=== PATIENT | male | born 1950 | race Caucasian/White ===

== ENCOUNTER 2021-01-23 16:10 | Outpatient (REF) | payer MEDICARE, SELFPAY ==
--- NOTE | ~2021-01-23 | XR_ITS ---
EXAMINATION: XR HIP, LEFT CLINICAL INFORMATION: Left hip pain. COMPARISON: None. TECHNIQUE: 2 views of the left hip. FINDINGS: No significant joint space narrowing or marginal osteophytes. No osseous erosion. No fracture or dislocation. No abnormal soft tissue calcification. XR/XR hip LT min 2V IMPRESSION: Unremarkable examination.
== END 2021-01-23 16:11 | disposition home or self-care (01) ==
LOC: HO.XRAY 16:10
PROVIDERS: PCP Internal Medicine; Visit Provider Internal Medicine
DX: M25.552 Pain in left hip (principal)
CPT/HCPCS: 73502

== ENCOUNTER 2021-12-02 08:16 | Outpatient (REF) | payer MEDICARE, SELFPAY ==
[2021-12-02 09:02] LABS: Estimated Average Glucose 131 mg/dL; Hemoglobin A1c % 6.2 %
== END 2021-12-02 08:17 | disposition home or self-care (01) ==
LOC: HO.LAB 08:16
PROVIDERS: PCP Internal Medicine; Visit Provider Internal Medicine
DX: R73.9 Hyperglycemia, unspecified (principal)
CPT/HCPCS: 36415; 83036

== ENCOUNTER 2022-03-17 07:00 | Outpatient (REF) | payer MEDICARE, SELFPAY ==
[2022-03-17 07:19] LABS: MANUAL DIFF FLAG NO
[2022-03-17 08:34] LABS: Basophils Absolute Auto 0.1 X10*3/uL (0.0-0.2); Basophils Percent Auto 0.9 % (0-2); Eosinophils Absolute Auto 0.3 X10*3/uL (0.0-0.4); Eosinophils Percent Auto 4.9 % (0-4); Hematocrit 42.9 % (42.0-52.0); Hemoglobin 14.5 g/dl (14.0-18.0); Imm Gran Abs Auto 0.02 X10*3/uL (0.00-0.03); Imm Gran Pct Auto 0.3 % (0.0-0.4); Lymphocytes Absolute Auto 2.8 X10*3/uL (1.2-4.9); Lymphocytes Percent Auto 40.2 % (20-40); Mean Corpuscular HGB Conc 33.8 g/dl (31.0-36.0); Mean Corpuscular Hemoglobin 28.8 pg (27.0-33.0); Mean Corpuscular Volume 85.3 fL (80.0-98.0); Mean Platelet Volume 10.9 fL (9.4-12.4); Monocytes Absolute Auto 0.6 X10*3/uL (0.1-1.2); Monocytes Percent Auto 8.3 % (2-11); Neutrophils Absolute Auto 3.1 x10*3/uL (2.0-8.3); Neutrophils Percent Auto 45.4 % (45-73); Platelet Count 232 X10*3/uL (160-400); Red Blood Count 5.03 X10*6/uL (4.60-5.80); Red Cell Distribution Width 13.2 % (11.0-16.0); White Blood Count 6.9 X10*3/uL (4.8-10.8)
[2022-03-17 08:47] LABS: Appearance Urine HAZY; Color Urine YELLOW; Glucose Urine UA NEG (NEG); Leukocyte Esterase Urine NEG (NEG); Nitrite Urine NEG (NEG); PH 6.5 (5.0-8.0); UACC Culture Trigger NO; Urine Blood TRACE (NEG); Urine Ketones NEG (NEG); Urine Protein NEG (NEG-TRACE)
[2022-03-17 08:54] LABS: Alanine Aminotransferase 29 U/L (0-40); Albumin Level 4.3 g/dL (3.5-5.0); Alkaline Phosphatase 70 U/L (39-117); Anion Gap 11 (12-20); Aspartate Amino Transferase 25 U/L (5-37); Bilirubin Total 0.6 mg/dL (0.0-1.0); Blood Urea Nitrogen 26 mg/dL (9-16); Calcium 9.1 mg/dL (8.4-10.2); Carbon Dioxide 27 mmol/L (22-29); Chloride 105 mmol/L (96-108); Cholesterol 172 mg/dL; Estimated Glomerular Filt Rate 54; Glucose Fasting 110 mg/dL (60-99); HDL Cholesterol 35 mg/dL; LDL Cholesterol Calculated 106 mg/dl; Potassium 3.9 mmol/L (3.3-5.1); Sodium 139 mmol/L (135-145); Total Protein 7.1 g/dL (6.5-8.0); Triglycerides 156 mg/dL
[2022-03-17 09:11] LABS: RBC Urine 0-2 /HPF (0); Squamous Epithelial Cell Urine 1+ /LPF; WBC Urine 0 /HPF (0-4)
[2022-03-17 09:25] LABS: Prostate Specific Antigen < 0.05 ng/mL (<0.05-4.0); TSH reflex Free T4 1.25 uIU/mL (0.32-4.0)
[2022-03-17 10:02] LABS: Vitamin D 25-OH Total 25.1 ng/mL (>30)
== END 2022-03-17 07:01 | disposition home or self-care (01) ==
LOC: HO.LAB 07:00
PROVIDERS: PCP Internal Medicine; Visit Provider Internal Medicine
DX: Z00.00 Encounter for general adult medical examination without abnormal findings (principal); E55.9 Vitamin D deficiency, unspecified; E78.00 Pure hypercholesterolemia, unspecified; I10 Essential (primary) hypertension; N40.0 Benign prostatic hyperplasia without lower urinary tract symptoms; Z12.5 Encounter for screening for malignant neoplasm of prostate
CPT/HCPCS: 36415; 80053; 80061; 81001; 82306; 84153; 84443; 85025

== ENCOUNTER 2022-07-28 07:06 | Outpatient (REF) | payer MEDICARE, SELFPAY ==
[2022-07-28 07:28] LABS: MANUAL DIFF FLAG NO
[2022-07-28 08:31] LABS: Basophils Absolute Auto 0.1 X10*3/uL (0.0-0.2); Eosinophils Absolute Auto 0.3 X10*3/uL (0.0-0.4); Eosinophils Percent Auto 3.6 % (0-4); Hematocrit 44.9 % (42.0-52.0); Hemoglobin 14.9 g/dl (14.0-18.0); Imm Gran Abs Auto 0.01 X10*3/uL (0.00-0.03); Imm Gran Pct Auto 0.1 % (0.0-0.4); Lymphocytes Absolute Auto 2.5 X10*3/uL (1.2-4.9); Lymphocytes Percent Auto 35.7 % (20-40); Mean Corpuscular HGB Conc 33.2 g/dl (31.0-36.0); Mean Corpuscular Hemoglobin 28.2 pg (27.0-33.0); Mean Platelet Volume 10.9 fL (9.4-12.4); Monocytes Absolute Auto 0.5 X10*3/uL (0.1-1.2); Monocytes Percent Auto 7.6 % (2-11); Neutrophils Absolute Auto 3.6 x10*3/uL (2.0-8.3); Platelet Count 245 X10*3/uL (160-400); Red Blood Count 5.28 X10*6/uL (4.60-5.80); Red Cell Distribution Width 13.2 % (11.0-16.0)
[2022-07-28 08:40] LABS: Estimated Average Glucose 123 mg/dL; Hemoglobin A1c % 5.9 %
[2022-07-28 09:18] LABS: Alanine Aminotransferase 29 U/L (0-40); Albumin Level 4.5 g/dL (3.5-5.0); Alkaline Phosphatase 71 U/L (39-117); Anion Gap 16 (12-20); Aspartate Amino Transferase 27 U/L (5-37); Bilirubin Total 0.6 mg/dL (0.0-1.0); Blood Urea Nitrogen 21 mg/dL (9-16); Calcium 9.6 mg/dL (8.4-10.2); Carbon Dioxide 26 mmol/L (22-29); Chloride 103 mmol/L (96-108); Cholesterol 167 mg/dL; Estimated Glomerular Filt Rate 52; Glucose Fasting 114 mg/dL (60-99); HDL Cholesterol 41 mg/dL; LDL Cholesterol Calculated 109 mg/dl; Sodium 141 mmol/L (135-145); Total Protein 7.5 g/dL (6.5-8.0); Triglycerides 89 mg/dL
[2022-07-28 09:37] LABS: Prostate Specific Antigen < 0.05 ng/mL (<0.05-4.0); TSH reflex Free T4 1.12 uIU/mL (0.32-4.0); Vitamin D 25-OH Total 46.9 ng/mL (>30)
[2022-07-28 11:03] LABS: Appearance Urine Cloudy; Color Urine Yellow; Glucose Urine UA Negative (Negative); Leukocyte Esterase Urine Negative (Negative); Nitrite Urine Negative (Negative); Specific Gravity - Urine 1.025 (1.005-1.025); Urine Blood Negative (Negative); Urine Ketones Trace mg/dL (Negative); Urine Protein Negative (Neg-Trace)
== END 2022-07-28 07:07 | disposition home or self-care (01) ==
LOC: HO.LAB 07:06
PROVIDERS: PCP Internal Medicine; Visit Provider Internal Medicine
DX: I10 Essential (primary) hypertension (principal); R73.01 Impaired fasting glucose; N40.0 Benign prostatic hyperplasia without lower urinary tract symptoms; E78.00 Pure hypercholesterolemia, unspecified; E55.9 Vitamin D deficiency, unspecified; Z12.5 Encounter for screening for malignant neoplasm of prostate
CPT/HCPCS: 36415; 80053; 80061; 81003; 82306; 83036; 84153; 84443; 85025

== ENCOUNTER → 2022-12-17 12:38 | Outpatient (BNVA) | payer MEDICARE, SELFPAY | PROVIDERS: PCP Internal Medicine; Referring Provider Internal Medicine; Visit Provider Surgery | DX: D17.0 Benign lipomatous neoplasm of skin and subcutaneous tissue of head, face and neck (principal) | CPT/HCPCS: 99202 ==

== ENCOUNTER 2023-01-02 10:37 | Outpatient (REF) | payer MEDICARE, SELFPAY | END 2023-01-02 10:38 | disposition home or self-care (01) | LOC: HO.LNP 10:37 | PROVIDERS: PCP Internal Medicine; Visit Provider Surgery | DX: D17.0 Benign lipomatous neoplasm of skin and subcutaneous tissue of head, face and neck (principal) | CPT/HCPCS: 11422; 88304 ==

== ENCOUNTER → 2023-01-09 14:46 | Outpatient (BNVA) | payer MEDICARE, SELFPAY | PROVIDERS: PCP Internal Medicine; Referring Provider Internal Medicine; Visit Provider Surgery ==

== ENCOUNTER 2023-04-20 07:41 | Outpatient (REF) | payer MEDICARE, SELFPAY ==
--- NOTE | ~2023-04-20 | XR_ITS ---
EXAMINATION: XR LUMBOSACRAL SPINE CLINICAL INFORMATION: Low back pain, unspecified COMPARISON: 04/27/2020 TECHNIQUE: Three views of the lumbosacral spine. FINDINGS: 5 lumbar type vertebral bodies. Vertebral body heights are preserved. Mild degenerative disc disease in the lumbar spine greatest at L4-L5 and L5-S1. Small marginal osteophyte formation. Mild facet arthropathy at L4-L5 and L5-S1. Sacroiliac joints are intact. XR/XR lumbar spine 2-3V IMPRESSION: Mild degenerative disc disease and facet arthropathy in the lower lumbar spine.
[2023-04-20 07:54] LABS: MANUAL DIFF FLAG NO
[2023-04-20 08:13] LABS: Basophils Absolute Auto 0.1 X10*3/uL (0.0-0.2); Eosinophils Absolute Auto 0.3 X10*3/uL (0.0-0.4); Eosinophils Percent Auto 4.4 % (0-4); Hematocrit 45.7 % (42.0-52.0); Hemoglobin 15.1 g/dl (14.0-18.0); Imm Gran Abs Auto 0.02 X10*3/uL (0.00-0.03); Imm Gran Pct Auto 0.3 % (0.0-0.4); Lymphocytes Absolute Auto 2.5 X10*3/uL (1.2-4.9); Lymphocytes Percent Auto 36.1 % (20-40); Mean Corpuscular Hemoglobin 28.4 pg (27.0-33.0); Mean Corpuscular Volume 86.1 fL (80.0-98.0); Mean Platelet Volume 10.6 fL (9.4-12.4); Monocytes Absolute Auto 0.5 X10*3/uL (0.1-1.2); Monocytes Percent Auto 7.7 % (2-11); Neutrophils Absolute Auto 3.5 x10*3/uL (2.0-8.3); Neutrophils Percent Auto 50.5 % (45-73); Platelet Count 242 X10*3/uL (160-400); Red Blood Count 5.31 X10*6/uL (4.60-5.80); Red Cell Distribution Width 13.2 % (11.0-16.0)
[2023-04-20 08:27] LABS: Estimated Average Glucose 117 mg/dL; Hemoglobin A1C 148.6556 umol/L; Hemoglobin A1c % 5.7 %
[2023-04-20 08:54] LABS: Alanine Aminotransferase 39 U/L (0-40); Albumin Level 4.5 g/dL (3.5-5.0); Alkaline Phosphatase 77 U/L (39-117); Anion Gap 14 (12-20); Aspartate Amino Transferase 28 U/L (5-37); Bilirubin Total 0.7 mg/dL (0.0-1.0); Blood Urea Nitrogen 24 mg/dL (9-16); Calcium 9.7 mg/dL (8.4-10.2); Carbon Dioxide 26 mmol/L (22-29); Chloride 106 mmol/L (96-108); Cholesterol 167 mg/dL; Estimated Glomerular Filt Rate 50; Glucose Fasting 111 mg/dL (60-99); HDL Cholesterol 42 mg/dL; LDL Cholesterol Calculated 106 mg/dl; Potassium 3.8 mmol/L (3.3-5.1); Sodium 142 mmol/L (135-145); Total Protein 7.6 g/dL (6.5-8.0); Triglycerides 96 mg/dL
[2023-04-20 08:54] LABS: Appearance Urine Clear; Color Urine Yellow; Glucose Urine UA Negative (Negative); Leukocyte Esterase Urine Negative (Negative); Nitrite Urine Negative (Negative); Specific Gravity - Urine 1.025 (1.005-1.025); Urine Blood Negative (Negative); Urine Ketones Negative (Negative); Urine Protein Negative (Neg-Trace)
[2023-04-20 09:10] LABS: TSH reflex Free T4 0.95 uIU/mL (0.32-4.0); Vitamin D 25-OH Total 38.3 ng/mL (>30)
== END 2023-04-20 07:42 | disposition home or self-care (01) ==
LOC: HO.XRAY 07:41
PROVIDERS: PCP Internal Medicine; Visit Provider Internal Medicine
DX: M54.50 Low back pain, unspecified (principal); R30.0 Dysuria; E55.9 Vitamin D deficiency, unspecified; I10 Essential (primary) hypertension; R73.01 Impaired fasting glucose; E78.00 Pure hypercholesterolemia, unspecified
CPT/HCPCS: 36415; 72100; 80053; 80061; 81003; 82306; 83036; 84443; 85025

== ENCOUNTER 2023-07-03 15:26 | Emergency (ER) | payer MEDICARE, SELFPAY ==
--- NOTE | ~2023-07-03 | XR_ITS ---
EXAMINATION: XR CHEST CLINICAL INFORMATION: Chest COMPARISON: 07/14/2014. TECHNIQUE: Frontal view of the chest was obtained. FINDINGS: No significant abnormality is noted involving the heart, lungs, mediastinum, bony thorax or soft tissues. There is linear atelectasis in lingula XR/XR chest 1V IMPRESSION: No active cardiopulmonary disease
--- NOTE | ~2023-07-03 | XR_ITS ---
EXAMINATION: XR SHOULDER, LEFT CLINICAL INFORMATION: Rotator cuff tendinitis. COMPARISON: None available. TECHNIQUE: Four views of the left shoulder. FINDINGS: No acute fractures or malalignment. No abnormal soft tissue calcifications. The acromioclavicular joint and coracoid process are within normal limits. The visualized left-sided ribs and lung are unremarkable. No unexpected radiopaque foreign bodies. XR/XR shoulder LT min 2V IMPRESSION: 1. No acute fractures or malalignment. 2. No abnormal soft tissue calcifications.
--- NOTE | 2023-07-03 15:28 | ECG_ITS ---
Test Reason : CHEST PAIN Blood Pressure : / mmHG Vent. 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
--- NOTE | 2023-07-03 15:48 | ED_ITS ---
HPI - General Adult General Chief complaint: Chest Pain Stated complaint: L arm pain to back , severe. Time Seen by Provider: 07/03/23 18:48 Source: patient Mode of arrival: ambulatory Limitations: no limitations History of Present Illness HPI narrative: Patient with history of hypertension, prostate cancer chronic arthritis left shoulder pain for more than 1 year comes here for increased pain in the left shoulder for last 3 days apparently patient gets up by pushing his elbow to the bed 3 days ago noticed more pain in the left shoulder which increases on abductor no chest pain or shortness of breath no injury patient tender to touch to the left shoulder and increases on moving his left arm Related Data Previous Rx's Medication Instructions Recorded lidocaine 5 % topical patch 1 patch topical DAILY #30 ea 02/09/21 mometasone 0.1 % topical cream 1 appl topical DAILY rash 10 days 05/23/21 #45 grams sildenafil 100 mg tablet 100 mg PO ONCE PRN sexual activity 09/25/21 30 days #6 tabs cholecalciferol (vitamin D3) 50 50 mcg PO DAILY 90 days #90 caps 04/05/23 mcg (2,000 unit) capsule hydrochlorothiazide 25 mg tablet 25 mg PO QAM 90 days #90 tabs 04/05/23 tramadol 50 mg tablet 50 mg PO Q6H PRN pain #20 tabs 07/03/23 Allergies Allergy/AdvReac Type Severity Reaction Status Date / Time No Known Allergies Allergy Verified 07/03/23 15:48 Review of Systems 2 Review of Systems: Yes all other systems are reviewed and are negative PMFSH Past Medical History Medical History Lipoma of neck Vitamin D deficiency Erectile dysfunction Hearing impairment Left hip pain Obesity (BMI 30-39.9) Prostate cancer Benign essential hypertension Surgical History History of excision of mass (01/02/23) History of partial colectomy Status post excision of lipoma History of laparoscopic cholecystectomy History of prostatectomy (~11/15/20) Family History Family History Other Family history non-contributory Social History Social History Housing: House Alcohol intake: never Patient Tobacco Use Status: Never used Tobacco Smoked in Last 30 Days: No e-Cigarette/Vaping Use: Never Used Second Hand Smoke Exposure: No Use of substances other than those prescribed or required for medical reasons: No Advance Directives: No Advance Directives Information Provided: No service: No Current occupational status: employed Cognitive needs: No Hearing needs: No Vision needs: Yes Physical Exam ED Vital Signs: Vital Signs - 24 hr 07/03/23 15:49 07/03/23 18:51 07/03/23 19:25 Temperature 98.2 F 98.0 F Pulse Rate 91 84 85 Respiratory Rate 16 14 16 Blood Pressure 171/90 H 166/95 H 158/84 H Pulse Oximetry 94 94 97 Oxygen Delivery Method Room Air Room Air Room Air BMI result Body Mass Index 33.9 Appearance: Alert. Oriented X3. No acute distress. ENT: Pharynx normal. Oral Mucosa moist Neck: Normal inspection. Neck supple. CVS: Normal heart rate and rhythm. Pulses normal. Respiratory: No respiratory distress. Equal air entry bilateral, Abdomen: Soft and nontender. Bowel sounds are present, Skin: Skin warm and dry. Normal skin color. Normal skin turgor. Extremities: No lower extremity edema. No calf tenderness left shoulder diffuse rotator cuff tenderness increase pain on abduction and external rotation neurovascular intact Neuro: Oriented X 3. No motor deficit. No sensory deficit.No cerebellar signs , cranial nerves II-XII intact Course Course Course Narrative: RME: 72-year-old male with past medical history of hypertension, prostate CA, presenting to the ED complaining of left-sided arm pain radiating to chest, head, neck x yesterday. Pain is constant. Denies injury Lungs CTA, peripheral pulses intact EKG, labs, CXR ordered Full HPI, ROS and PE to be performed by primary ED provider. Medications Administered Discontinued Medications Generic Name Dose Route Start Last Admin Trade Name Freq PRN Reason Stop Dose Admin Morphine Sulfate 15 mg 07/03/23 19:02 07/03/23 19:24 Morphine Sulfate Immed Release 15 Mg Tablet PO 07/03/23 19:03 15 mg ONCE ONE Administration Medical Decision Making Medical Decision Making [facility] Narrative: Patient clinically with left rotator cuff tendinitis labs negative for ACS will apply sling discharge patient home advised to follow with Ortho Differential Diagnosis Differential Diagnoses: The differential diagnosis associated with the presentation includes ACS/tendinitis/rotator cuff tendinitis/impingement syndrome Lab Data MDM Lab Attestation statement: I reviewed the patient's lab results. 07/03/23 17:25 07/03/23 17:25 Labs: Lab Results 07/03/23 Range/Units 17:25 WBC 10.0 (4.8-10.8) X10*3/uL RBC 5.30 (4.60-5.80) X10*6/uL Hgb 15.4 (14.0-18.0) g/dl Hct 44.6 (42.0-52.0) % MCV 84.2 (80.0-98.0) fL MCH 29.1 (27.0-33.0) pg MCHC 34.5 (31.0-36.0) g/dl RDW 13.0 (11.0-16.0) % Plt Count 213 (160-400) X10*3/uL MPV 10.4 (9.4-12.4) fL Immature Gran % (Auto) 0.3 (0.0-0.4) % Neut % (Auto) 69.0 (45-73) % Lymph % (Auto) 20.5 (20-40) % Clayton % (Auto) 8.1 (2-11) % Eos % (Auto) 1.5 (0-4) % Baso % (Auto) 0.6 (0-2) % Lymph # (Auto) 2.1 (1.2-4.9) X10*3/uL Clayton # (Auto) 0.8 (0.1-1.2) X10*3/uL Eos # (Auto) 0.2 (0.0-0.4) X10*3/uL Baso # (Auto) 0.1 (0.0-0.2) X10*3/uL Abs Immat Gran (auto) 0.03 (0.00-0.03) X10*3/uL Absolute Neuts (auto) 6.9 (2.0-8.3) x10*3/uL Absolute Nucleated RBC 0.000 (0.0-0.012) X10*3/uL Nucleated RBC % (auto) 0.0 (0.0-0.2) /100WBC PT 11.5 (11.1-13.3) SEC INR 0.9 (0.9-1.1) Sodium 141 (135-145) mmol/L Potassium 4.3 (3.3-5.1) mmol/L Chloride 108 (96-108) mmol/L Carbon Dioxide 26 (22-29) mmol/L Anion Gap 11 L (12-20) BUN 15 (9-16) mg/dL Creatinine 1.15 (0.5-1.4) mg/dL Estim Creat Clear Calc 64.5 Estimated GFR > 60 Random Glucose 102 (60-115) mg/dL Calcium 9.6 (8.4-10.2) mg/dL Magnesium 2.3 (1.6-2.6) mg/dL Total Bilirubin 0.4 (0.0-1.0) mg/dL Direct Bilirubin 0.1 (0.0-0.5) mg/dL AST 19 (5-37) U/L ALT 23 (0-40) U/L Alkaline Phosphatase 77 (39-117) U/L Troponin I High Sens < 2.7 (<3.5-35.0) ng/L Total Protein 7.6 (6.5-8.0) g/dL Albumin 4.4 (3.5-5.0) g/dL Independent Interpretation I performed an independent interpretation of an: EKG Interpretation: Normal sinus rhythm left axis deviation heart rate 78 beats per minute normal interval normal axis no acute ischemic changes Discharge Plan Discharge Clinical Impression: Tendinitis of left rotator cuff Patient Disposition: Home, Self-Care Instructions: Rotator Cuff Tendinitis (ED) Additional Instructions: Wear the sling for support Avoid lifting your left arm above your head Follow-up with orthopedics Pain medication as prescribed Prescriptions: New tramadol 50 mg tablet 50 mg PO Q6H PRN (Reason: pain) Qty: 20 0RF No Action lidocaine 5 % adhesive patch,medicated 1 patch topical DAILY Qty: 30 0RF Rx Instructions: leave on most painful area for up to 12 hrs sildenafil 100 mg tablet 100 mg PO ONCE PRN (Reason: sexual activity) 30 Days Qty: 6 0RF mometasone 0.1 % cream 1 appl topical DAILY 10 Days Qty: 45 0RF Rx Instructions: Apply to rash on chin once a day for 10 days OR until rash clears up hydrochlorothiazide 25 mg tablet 25 mg PO QAM 90 Days Qty: 90 1RF cholecalciferol (vitamin D3) 50 mcg (2,000 unit) capsule 50 mcg PO DAILY 90 Days Qty: 90 3RF Referrals: Rayo Bonilla MD [Physician] - 2 weeks Stand Alone Forms: Work/School Release Interventions: ED Discharge Assessment Last Done: 07/03/23 19:48 Discharge Date/Time: 07/03/23 19:49
[2023-07-03 15:49] VITALS: BP 171/90; PULSE 91; RESP 16; TEMP 36.8; O2SAT 94; BMI 33.9
[2023-07-03 17:30] LABS: MANUAL DIFF FLAG NO
[2023-07-03 17:34] LABS: Basophils Absolute Auto 0.1 X10*3/uL (0.0-0.2); Basophils Percent Auto 0.6 % (0-2); Eosinophils Absolute Auto 0.2 X10*3/uL (0.0-0.4); Eosinophils Percent Auto 1.5 % (0-4); Hematocrit 44.6 % (42.0-52.0); Hemoglobin 15.4 g/dl (14.0-18.0); Imm Gran Abs Auto 0.03 X10*3/uL (0.00-0.03); Imm Gran Pct Auto 0.3 % (0.0-0.4); Lymphocytes Absolute Auto 2.1 X10*3/uL (1.2-4.9); Lymphocytes Percent Auto 20.5 % (20-40); Mean Corpuscular HGB Conc 34.5 g/dl (31.0-36.0); Mean Corpuscular Hemoglobin 29.1 pg (27.0-33.0); Mean Corpuscular Volume 84.2 fL (80.0-98.0); Mean Platelet Volume 10.4 fL (9.4-12.4); Monocytes Absolute Auto 0.8 X10*3/uL (0.1-1.2); Monocytes Percent Auto 8.1 % (2-11); Neutrophils Absolute Auto 6.9 x10*3/uL (2.0-8.3); Platelet Count 213 X10*3/uL (160-400)
[2023-07-03 17:39] LABS: INTERNATIONAL NORM RATIO 0.9 (0.9-1.1); Prothrombin Time 11.5 SEC (11.1-13.3)
[2023-07-03 17:46] LABS: Alanine Aminotransferase 23 U/L (0-40); Albumin Level 4.4 g/dL (3.5-5.0); Alkaline Phosphatase 77 U/L (39-117); Anion Gap 11 (12-20); Aspartate Amino Transferase 19 U/L (5-37); Bilirubin Direct 0.1 mg/dL (0.0-0.5); Bilirubin Total 0.4 mg/dL (0.0-1.0); Blood Urea Nitrogen 15 mg/dL (9-16); Calcium 9.6 mg/dL (8.4-10.2); Carbon Dioxide 26 mmol/L (22-29); Chloride 108 mmol/L (96-108); Creatinine Clr Calc Pharmacy 64.5; Estimated Glomerular Filt Rate > 60; Glucose Random 102 mg/dL (60-115); Magnesium 2.3 mg/dL (1.6-2.6); Potassium 4.3 mmol/L (3.3-5.1); Sodium 141 mmol/L (135-145); Total Protein 7.6 g/dL (6.5-8.0)
[2023-07-03 17:55] LABS: Troponin-I High Sensitivity < 2.7 ng/L (<3.5-35.0)
[2023-07-03 18:51] VITALS: BP 166/95; PULSE 84; RESP 14; TEMP 36.7; O2SAT 94
--- NOTE | 2023-07-03 19:11 | PC.NURSE ---
pt at xray at this time.
[2023-07-03] MEDS: Morphine Sulfate Immed Release 15 MG TABLET PO (19:24)
[2023-07-03 19:25] VITALS: BP 158/84; PULSE 85; RESP 16; O2SAT 97
== END 2023-07-03 19:49 | disposition home or self-care (01) ==
PROVIDERS: Physician Assistant; Emergency Provider Internal Medicine; PCP Internal Medicine
DX: M75.102 Unspecified rotator cuff tear or rupture of left shoulder, not specified as traumatic (principal); M25.512 Pain in left shoulder; R07.89 Other chest pain; I10 Essential (primary) hypertension; C61 Malignant neoplasm of prostate; E55.9 Vitamin D deficiency, unspecified; Z79.899 Other long term (current) drug therapy
CPT/HCPCS: 36415; 71045; 73030; 80048; 80076; 83735; 84484; 85025; 85610; 93005; 99283; 99285

== ENCOUNTER 2023-07-29 14:15 | Outpatient (AMB) | payer MEDICARE, SELFPAY ==
[2023-07-29 14:23] VITALS: BP 128/74; PULSE 82; O2SAT 96; BMI 33.1
--- NOTE | 2023-07-29 14:23 | A.OFFPC_ITS ---
Vital Signs 07/29/23 14:23 Height 5 ft 6 in Weight 205 lb 4 oz BMI 33.1 BP 128/74 Blood Pressure Location Lt brachial Position Sitting Pulse 82 Pulse Source Pulse Oximeter Pulse Oximetry (%) 96 Oxygen Delivery Method Room Air Intake Visit Reasons: 4 month f/u - see bulletin board Field Administrator Required: No Accompanied by: Self / Same As Patient Allergies No Known Allergies Allergy (Verified 07/29/23 15:37) Medication List - Last Reconciled 07/29/23 by Neto Lockwood MD cholecalciferol (vitamin D3) 50 mcg PO DAILY 90 days hydrochlorothiazide 25 mg PO QAM 90 days lidocaine 5% 1 patch topical DAILY mometasone 0.1% 1 appl topical DAILY 10 days sildenafil 100 mg PO ONCE PRN 30 days tramadol 50 mg PO Q6H PRN Tobacco use date assessed: 07/29/23 Fall risk assessment: No Falls in past year Last assessed Fall Risk: 07/29/23 Dental Screening Dental Screen Date: 07/29/23 Did you have a dental visit in the last 12 months?: Yes Did you have a dental problem in the last 6 months where you did not have access to dental care?: No Was dental information given to patient?: Patient has dentist HPI 4 month f/u - see bulletin board HPI Details Patient comes in today for his follow up visit States that he currently feels okay He denies any headaches or dizziness Denies any chest pains, no SOB No nausea/vomiting, no abdominal pain No change in bowel habits noted Needs his HCTX Rx refilled Had his follow up labs done last month although these appear to be non-fasting - to discuss his results [facility] Medical History Lipoma of neck Vitamin D deficiency Erectile dysfunction Hearing impairment Left hip pain Obesity (BMI 30-39.9) Prostate cancer Benign essential hypertension Surgical History History of excision of mass (01/02/23) History of partial colectomy Status post excision of lipoma History of laparoscopic cholecystectomy History of prostatectomy (~11/15/20) Family History Other Family history non-contributory Social History Housing: House Alcohol intake: never Patient Tobacco Use Status: Never used Tobacco e-Cigarette/Vaping Use: Never Used Second Hand Smoke Exposure: No service: No Current occupational status: employed Cognitive needs: No Hearing needs: No Vision needs: Yes Questionnaire PHQ-9 Over the last 2 weeks, how often have you been bothered by any of the following problems? 1. Little interest or pleasure in doing things: not at all 2. Feeling down, depressed, or hopeless: not at all 3. Trouble falling or staying asleep, or sleeping too much: several days 4. Feeling tired or having little energy: not at all 5. Poor appetite or overeating: not at all 6. Feeling bad about yourself - or that you are a failure or have let yourself or your family down: not at all 7. Trouble concentrating on things, such as reading the newspaper or watching te levision: not at all 8. Moving or speaking so slowly that other people could have noticed. Or the opposite - being so fidgety or restless that you have been moving around a lot more than usual: not at all 9. Thoughts that you would be better off or of hurting yourself in some way: not at all Total score: 1 Depression Screening Interpretation: Negative Depression Screening Done: Yes 76240 - PHQ-9 Billing: Yes Source: Developed by Drs. Dinesh Christianson, Aida Chatterjee, Kem Pineda and colleagues, with an educational grisel from [employer]. Thrive Questionnaire Date Thrive assessed: 07/29/23 I am a: Patient What is your living situation today?: I have a steady place to live Within the past 12 months, did the food you bought not last and you didn't have the money to get more?: Never true Within the past 12 months, did you worry whether your food would run out before you got money to buy more?: Never true Do you have trouble paying for medicines?: No Do you have trouble getting transportation to medical appointments?: No Do you have trouble paying your heating and electricity bill?: No Do you have trouble taking care of your child, family member or friend?: No Do you have trouble with day-to-day activities such as bathing, preparing meals, shopping, managing finances, etc.?: No Are you currently unemployed and looking for a job?: No Are you interested in more education?: No Please select the resources that you would like help with: None Currently or been in a relationship where the following occur: no concerns reported AUDIT C Alcohol Use Questionnaire (AUDIT-C) 1. How often do you have a drink containing alcohol?: Never 3. How often do you have six or more drinks on one occasion?: Never Total Score: 0 Score Reviewed/Action Taken: Yes COTY-7 AMB Questionnaire COTY-7 Date COTY - 7 assessed: 07/29/23 Feeling nervous, anxious, or on edge: 1 = Several days Not being able to stop or control worryin = Not at all Worrying too much about different things: 0 = Not at all Trouble relaxin = Not at all Being so restless that it is hard to sit still: 0 = Not at all Becoming easily annoyed or irritable: 0 = Not at all Feeling afraid as if something awful might happen: 0 = Not at all Total COTY-7 score (0-4 normal; 5-9 mild; 10-14 moderate; 15-21 severe): 1 Source: Developed by Drs. Dinesh Christianson, Aida Chatterjee, Kem Pineda and colleagues, with an educational grisel from [employer]. Review of Systems Const Denies chills, Denies fatigue, Denies fever(s) and Denies headache(s) ENT Denies dysphagia, Denies dizziness, Denies otalgia, Denies headache(s), Denies odynophagia and Denies sore throat Card Denies chest pain, Denies palpitations and Denies dyspnea Resp Denies cough and Denies dyspnea GI Denies abdominal pain, Denies constipation, Denies dysphagia, Denies heartburn, Denies diarrhea, Denies nausea, Denies odynophagia and Denies vomiting Denies dysuria, Denies nocturia and Denies urinary frequency Musc Reports back pain (over the lower back - on and off) and Denies arthralgias Skin/Breast Denies rash Neuro Denies dizziness and Denies headache(s) Endo Denies fatigue and Denies palpitations Physical exam (Primary Care) Vital Signs: Last Vital Signs Pulse 82 07/29/23 14:23 BP 128/74 07/29/23 14:23 Pulse Ox 96 07/29/23 14:23 Oxygen Delivery Method Room Air 07/29/23 14:23 BMI result Body Mass Index 33.1 Tobacco/Smoking Status: Tobacco use Status Tobacco use date assessed 07/29/23 07/29/23 14:25 Patient Tobacco Use Status Never used Tobacco 07/29/23 14:25 e-Cigarette/Vaping Use Never Used 07/29/23 14:25 PHQ-9: PHQ-9 Score PHQ-9: Total score 1 07/29/23 15:38 Depression Screening Interpretation: Negative Thrive Assessment: Date of Thrive Assessment Date Thrive assessed 07/29/23 07/29/23 14:25 Currently or been in a relationship where the following occur: no concerns reported Const General: no acute distress and alert HENMT Ears: TM's normal bilaterally and EAC's normal Throat: Yes posterior oropharynx normal and Yes tonsils normal (no TP congestion) Neck Neck: Yes no lymphadenopathy and Yes supple Resp Auscultation: clear to auscultation bilaterally, no rales and no wheezes Cardio Rate: regular rate Rhythm: regular rhythm Heart sounds: no murmurs GI Palpation (GI): Soft to palpation and nontender Auscultation: normal bowel sounds Back/Spine/Pelvis Thoracic/Lumbar Spine: lumbar spinal tenderness Skin Rashes: no rashes Extrem General: Yes no clubbing, cyanosis or edema Results Reviewed Results Reviewed: Laboratory Tests 04/20/23 07/03/23 07:51 17:25 WBC 10.0 Hgb 15.4 Hct 44.6 Plt Count 213 Sodium 141 Potassium 4.3 Creatinine 1.15 Estimated GFR > 60 Random Glucose 102 Calcium 9.6 Magnesium 2.3 AST 19 ALT 23 Triglycerides 96 Cholesterol 167 LDL Cholesterol, Calc 106 HDL Cholesterol 42 25-OH Vitamin D Total 38.3 TSH 0.95 Assessment and Plan Assessment & Plan (1) Benign essential hypertension: Code(s): I10 - Essential (primary) hypertension Plan: Reinforced low-sodium diet -? goal is systolic BP of at least 120 to 130 mm or less Continue Hydrochlorothiazide 25 mg QD (2) Impaired fasting glucose: Code(s): R73.01 - Impaired fasting glucose Plan: His RBS was okay at 102 mg/dl on his labs done last month HgbA1c was at 5.9% on his labs done a few months ago; in-office HgbA1c was also at 5.9% previously Reinforced low calorie and low carb diet/exercise as tolerated Will recheck his labs and a repeat HgbA1c in 4 months for follow up (3) Vitamin D deficiency: Code(s): E55.9 - Vitamin D deficiency, unspecified Plan: Continue Vitamin D3 2000 units QD (4) Low back pain: Code(s): M54.50 - Low back pain, unspecified Qualifiers: Back pain laterality: midline Chronicity: unspecified Sciatica presence: without sciatica Qualified Code(s): M54.50 - Low back pain, unspecified Plan: Reinforced activity and weight lifting restrictions Lumbar spine x-rays done back in April 2023 revealed (+) mild degenerative disc disease and facet arthropathy in the lower lumbar spine Will consider referring to physical therapy and / or pain management if his low er back continues to bother him significantly (5) Prostate cancer: Code(s): C61 - Malignant neoplasm of prostate Plan: S/P robotic-assisted prostatectomy by Dr. Degroot a couple of years ago on 11/15/2020 Pathology showed Han 3+4, pT2c Repeat PSA a few months ago came out normal/low Follow up with urology as scheduled for continuing management and surveillance (6) Erectile dysfunction: Code(s): N52.9 - Male erectile dysfunction, unspecified Qualifiers: Erectile dysfunction type: unspecified Qualified Code(s): N52.9 - Male erectile dysfunction, unspecified Plan: Continue Sildenafil 50 mg QD PRN (7) Obesity (BMI 30-39.9): Code(s): E66.9 - Obesity, unspecified Plan: Reinforced diet/exercise as tolerated/lose weight Plan To return in 4 months for his annual physicla examination Orders: Orders Complete Blood Count Auto Diff 4 Months I10 - Essential (primary) hypertension Comprehensive Dawson. Panel Fast 4 Months E78.00 - Pure hypercholesterolemia, unspecified Vitamin D 25-OH Total 4 Months E55.9 - Vitamin D deficiency, unspecified Lipid Panel 4 Months E78.00 - Pure hypercholesterolemia, unspecified TSH reflex Free T4 4 Months E78.00 - Pure hypercholesterolemia, unspecified UA CC w/rflx Micro + Cult 4 Months R30.0 - Dysuria Medications: Refilled hydrochlorothiazide 25 mg PO QAM 90 days 90 tabs 1RF I10 - Essential (primary) hypertension Coding Level of Care Code Est Pt Level 4 (17060) Diagnoses Benign essential hypertension I10 Impaired fasting glucose R73.01 Vitamin D deficiency E55.9 Midline low back pain without sciatica, unspecified chronicity M54.50 Back pain laterality: midline Chronicity: unspecified Sciatica presence: without sciatica Prostate cancer C61 Erectile dysfunction, unspecified erectile dysfunction type N52.9 Erectile dysfunction type: unspecified Obesity (BMI 30-39.9) E66.9
== END 2023-07-29 15:44 | disposition home or self-care (01) ==
PROVIDERS: PCP Internal Medicine; Visit Provider Internal Medicine
DX: I10 Essential (primary) hypertension (principal); R73.01 Impaired fasting glucose; E55.9 Vitamin D deficiency, unspecified; C61 Malignant neoplasm of prostate; M54.50 Low back pain, unspecified; N52.9 Male erectile dysfunction, unspecified; E66.9 Obesity, unspecified
CPT/HCPCS: 99214

== ENCOUNTER 2023-11-26 14:41 | Outpatient (AMB) | payer MEDICARE, SELFPAY ==
[2023-11-26 14:44] VITALS: BP 122/80; PULSE 75; O2SAT 93; BMI 33.5
--- NOTE | 2023-11-26 14:44 | A.OFFPC_ITS ---
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 Required: No Accompanied by: Self / Same As Patient Allergies No Known Allergies Allergy (Verified 11/26/23 15:49) Medication List - Last Reconciled 11/26/23 by Neto Lockwood MD cholecalciferol (vitamin D3) 50 mcg PO DAILY 90 days hydrochlorothiazide 25 mg PO QAM 90 days lidocaine 5% 1 patch topical DAILY mometasone 0.1% 1 appl topical DAILY 10 days sildenafil 100 mg PO ONCE PRN 30 days tramadol 50 mg PO Q6H PRN Tobacco use date assessed: 11/26/23 Last assessed Fall Risk: 11/26/23 Dental Screening Dental Screen Date: 11/26/23 Did you have a dental visit in the last 12 months?: Yes Did you have a dental problem in the last 6 months where you did not have access to dental care?: No Was dental information given to patient?: Patient has dentist HPI Annual Physical HPI Details Patient comes in today for his annual physical examination States that he feels okay Still has on and off low back pain but states that they are mostly manageable as long as he avoids any heavy lifting He denies any headaches or dizziness Denies any chest pains, no SOB No nausea/vomiting, no abdominal pain No change in bowel habits noted He denies any acute urinary symptoms although he does get up about 2 to 3 times a night regularly to go to the bathroom States that he has no problem going back to sleep immediately following his bathroom trips He was not able to get his follow up labs done prior to his appointment today - states that he was not aware that he had labs ordered Recalls that he had a screening colonoscopy done at [facility] about 8 to 9 years ago - does not remember how his results were but thinks that they were normal [facility] Medical History Lipoma of neck Vitamin D deficiency Erectile dysfunction Hearing impairment Left hip pain Obesity (BMI 30-39.9) Prostate cancer Benign essential hypertension Surgical History History of excision of mass (01/02/23) History of partial colectomy Status post excision of lipoma History of laparoscopic cholecystectomy History of prostatectomy (~11/15/20) Family History Other Family history non-contributory Social History Housing: House Alcohol intake: never Patient Tobacco Use Status: Never used Tobacco e-Cigarette/Vaping Use: Never Used Second Hand Smoke Exposure: No service: No Current occupational status: employed Cognitive needs: No Hearing needs: No Vision needs: Yes Questionnaire PHQ-9 Over the last 2 weeks, how often have you been bothered by any of the following problems? 1. Little interest or pleasure in doing things: not at all 2. Feeling down, depressed, or hopeless: not at all 3. Trouble falling or staying asleep, or sleeping too much: several days 4. Feeling tired or having little energy: not at all 5. Poor appetite or overeating: not at all 6. Feeling bad about yourself - or that you are a failure or have let yourself or your family down: not at all 7. Trouble concentrating on things, such as reading the newspaper or watching television: not at all 8. Moving or speaking so slowly that other people could have noticed. Or the opposite - being so fidgety or restless that you have been moving around a lot more than usual: not at all 9. Thoughts that you would be better off or of hurting yourself in some way: not at all Total score: 1 Depression Screening Interpretation: Negative Depression Screening Done: Yes 51693 - PHQ-9 Billing: Yes Source: Developed by Drs. Dinesh Christianson, Aida Chatterjee, Kem Pineda and colleagues, with an educational grisel from [employer]. Thrive Questionnaire Date Thrive assessed: 11/26/23 I am a: Patient What is your living situation today?: I have a steady place to live Within the past 12 months, did the food you bought not last and you didn't have the money to get more?: Never true Within the past 12 months, did you worry whether your food would run out before you got money to buy more?: Never true Do you have trouble paying for medicines?: No Do you have trouble getting transportation to medical appointments?: No Do you have trouble paying your heating and electricity bill?: No Do you have trouble taking care of your child, family member or friend?: No Do you have trouble with day-to-day activities such as bathing, preparing meals, shopping, managing finances, etc.?: No Are you currently unemployed and looking for a job?: No Are you interested in more education?: No Please select the resources that you would like help with: None Currently or been in a relationship where the following occur: no concerns reported THRIVE Score: 0 AUDIT C Alcohol Use Questionnaire (AUDIT-C) 1. How often do you have a drink containing alcohol?: Never 3. How often do you have six or more drinks on one occasion?: Never Total Score: 0 Score Reviewed/Action Taken: Yes COTY-7 AMB Questionnaire COTY-7 Date COTY - 7 assessed: 11/26/23 Feeling nervous, anxious, or on edge: 1 = Several days Not being able to stop or control worryin = Not at all Worrying too much about different things: 0 = Not at all Trouble relaxin = Not at all Being so restless that it is hard to sit still: 0 = Not at all Becoming easily annoyed or irritable: 0 = Not at all Feeling afraid as if something awful might happen: 0 = Not at all Total COTY-7 score (0-4 normal; 5-9 mild; 10-14 moderate; 15-21 severe): 1 Source: Developed by Drs. Dinesh Christianson, Aida Chatterjee, Kem Pineda and colleagues, with an educational grisel from [employer]. Review of Systems Const Denies chills, Denies fatigue, Denies fever(s), Denies headache(s), Denies malaise and Denies weakness Eyes Denies blurry vision, Denies change in vision, Denies irritation and Denies itchy eyes ENT Denies dysphagia, Denies dizziness, Denies otalgia, Denies headache(s), Denies nasal congestion, Denies neck pain, Denies odynophagia and Denies sore throat Card Denies chest pain, Denies rapid heart rate, Denies irregular heart rhythm, Denies palpitations and Denies dyspnea Resp Denies chest congestion, Denies cough, Denies dyspnea and Denies wheezing GI Denies abdominal pain, Denies bloating, Denies constipation, Denies dysphagia, Denies heartburn, Denies diarrhea, Denies nausea, Denies odynophagia and Denies vomiting Denies hematuria, Denies difficulty urinating, Denies dysuria, Reports nocturia (2 to 3 times a night), Denies urinary frequency, Denies urinary hesitancy and Denies urinary urgency Musc Reports back pain (over the lower back), Denies arthralgias, Denies joint swelling, Denies muscle weakness and Denies neck pain Skin/Breast Denies change in pigmentation, Denies lesions, Denies rash and Denies unusual bruising Neuro Denies dizziness, Denies headache(s), Denies paresthesias and Denies weakness Endo Denies fatigue and Denies palpitations Aller/Immun Denies itchy eyes and Denies wheezing Physical exam (Primary Care) Vital Signs: Last Vital Signs Pulse 75 11/26/23 14:44 BP 122/80 11/26/23 14:44 Pulse Ox 93 11/26/23 14:44 Oxygen Delivery Method Room Air 11/26/23 14:44 BMI result Body Mass Index 33.5 Tobacco/Smoking Status: Tobacco use Status Tobacco use date assessed 11/26/23 11/26/23 14:48 Patient Tobacco Use Status Never used Tobacco 11/26/23 14:48 e-Cigarette/Vaping Use Never Used 11/26/23 14:48 PHQ-9: PHQ-9 Score PHQ-9: Total score 1 11/26/23 14:48 Depression Screening Interpretation: Negative Thrive Assessment: Date of Thrive Assessment Date Thrive assessed 11/26/23 11/26/23 14:48 Currently or been in a relationship where the following occur: no concerns reported Const General: no acute distress, alert and awake Orientation/consciousness: patient oriented x3 HENMT Head: Yes normocephalic and Yes atraumatic Ears: external ears normal, TM's normal bilaterally and EAC's normal General nose exam: No nasal discharge present Face and sinus: Yes normal facial exam and Yes sinuses nontender Teeth and gingiva: dentition normal Throat: Yes posterior oropharynx normal and Yes tonsils normal (no TP congestion) Eyes Eyelids: Yes eyelids normal Conjunctivae: conjunctivae normal Pupils: Equal, round and reactive pupils present EOM: EOMs intact bilaterally Neck Neck: Yes no lymphadenopathy and Yes supple Thyroid: Thyroid normal Resp Auscultation: clear to auscultation bilaterally, no rales and no wheezes Cardio Rate: regular rate Rhythm: regular rhythm Heart sounds: no murmurs GI Palpation (GI): Soft to palpation, nontender and No hepatosplenomegaly present Auscultation: normal bowel sounds General: Yes no CVA tenderness Back/Spine/Pelvis Back: no CVA tenderness Thoracic/Lumbar Spine: lumbar spinal tenderness Skin Lesions: no lesions Rashes: no rashes Neuro General: patient oriented x3, moves all extremities, no focal motor deficits and CN's II-XI intact bilaterally Cranial nerves: Yes Equal, round and reactive pupils present Cognition (Neuro): normal cognition Gait exam (Neuro): Normal gait present Extrem General: Yes no clubbing, cyanosis or edema Assessment and Plan Assessment & Plan (1) Annual physical exam: Code(s): Z00.00 - Encounter for general adult medical examination without abnormal findings Plan: Check labs He will likely need a repeat colonoscopy as he recalls having his last one done at [facility] about 8 to 10 years ago now We do not have any copies of his records back then to confirm this (2) Benign essential hypertension: Code(s): I10 - Essential (primary) hypertension Plan: Reinforced low-sodium diet -? goal is systolic BP of at least 120 to 130 mm or less Continue Hydrochlorothiazide 25 mg QD (3) Impaired fasting glucose: Code(s): R73.01 - Impaired fasting glucose Plan: His RBS was okay at 102 mg/dl on his labs done a few months ago HgbA1c was at 5.9% on his labs done last year; in-office HgbA1c was also at 5.9% previously Reinforced low calorie and low carb diet/exercise as tolerated Will recheck his labs and a repeat HgbA1c LIAM for follow up (4) Vitamin D deficiency: Code(s): E55.9 - Vitamin D deficiency, unspecified Plan: Continue Vitamin D3 2000 units QD Will recheck his Vitamin D level for follow up (5) Low back pain: Code(s): M54.50 - Low back pain, unspecified Qualifiers: Chronicity: unspecified Back pain laterality: midline Sciatica presence: without sciatica Qualified Code(s): M54.50 - Low back pain, unspecified Plan: Reinforced activity and weight lifting restrictions Lumbar spine x-rays done back in April 2023 revealed (+) mild degenerative disc disease and facet arthropathy in the lower lumbar spine Will consider referring to physical therapy and / or pain management if his lower back continues to bother him significantly (6) Prostate cancer: Code(s): C61 - Malignant neoplasm of prostate Plan: S/P robotic-assisted prostatectomy by Dr. Degroot a couple of years ago on 11/15/2020 Pathology showed Han 3+4, pT2c Repeat PSA a few months ago came out normal/low Follow up with urology as scheduled for continuing management and surveillance (7) Erectile dysfunction: Code(s): N52.9 - Male erectile dysfunction, unspecified Qualifiers: Erectile dysfunction type: unspecified Qualified Code(s): N52.9 - Male erectile dysfunction, unspecified Plan: Continue Sildenafil 50 mg QD PRN (8) Obesity (BMI 30-39.9): Code(s): E66.9 - Obesity, unspecified Plan: Reinforced diet/exercise as tolerated/lose weight (9) Colon cancer screening: Code(s): Z12.11 - Encounter for screening for malignant neoplasm of colon Plan: Patient recalls having his last colonoscopy done at [facility] about 8 to 10 years ago Will refer him to [facility] [place] colon[place] Plan Follow up in 4 months Orders: Orders Prostate Specific Antigen Today N40.0 - Benign prostatic hyperplasia without lower urinary tract symptoms, Z00.00 - Encounter for general adult medical examination without abnormal findings Hemoglobin A1c Today R73.01 - Impaired fasting glucose Referrals Gastroenterology Referral Z12.11 - Encounter for screening for malignant neoplasm of colon Coding Level of Care Code Est Pt Prev Care >65y(97117) Diagnoses Annual physical exam Z00.00 Benign essential hypertension I10 Impaired fasting glucose R73.01 Vitamin D deficiency E55.9 Midline low back pain without sciatica, unspecified chronicity M54.50 Chronicity: unspecified Back pain laterality: midline Sciatica presence: without sciatica Prostate cancer C61 Erectile dysfunction, unspecified erectile dysfunction type N52.9 Erectile dysfunction type: unspecified Obesity (BMI 30-39.9) E66.9 Colon cancer screening Z12.11
== END 2023-11-26 16:07 | disposition home or self-care (01) ==
PROVIDERS: PCP Internal Medicine; Visit Provider Internal Medicine
DX: Z00.00 Encounter for general adult medical examination without abnormal findings (principal); C61 Malignant neoplasm of prostate; I10 Essential (primary) hypertension; R73.01 Impaired fasting glucose; E55.9 Vitamin D deficiency, unspecified; M54.50 Low back pain, unspecified; N52.9 Male erectile dysfunction, unspecified; E66.9 Obesity, unspecified; Z12.11 Encounter for screening for malignant neoplasm of colon
CPT/HCPCS: 99397

== ENCOUNTER → 2024-02-04 08:22 | Outpatient (BNVA) | payer MEDICARE, SELFPAY | PROVIDERS: PCP Internal Medicine; Visit Provider Nurse Practitioner Family ==

== ENCOUNTER 2024-07-07 16:07 | Outpatient (AMB) | payer MEDICARE, SELFPAY ==
[2024-07-07 16:12] VITALS: BP 134/80; PULSE 74; O2SAT 93; BMI 33.1
--- NOTE | 2024-07-07 16:12 | MHC.PC.OV ---
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: No Accompanied by: Self / Same As Patient Allergies No Known Allergies Allergy (Verified 07/07/24 16:44) Medication List - Last Reconciled 07/07/24 by Neto Lockwood MD bisacodyl (Dulcolax (bisacodyl)) 10 mg (2 x 5 mg) PO ONCE 1 day bisacodyl (Dulcolax (bisacodyl)) 20 mg (4 x 5 mg) PO ONCE 1 day cholecalciferol (vitamin D3) 50 mcg PO DAILY 90 days hydrochlorothiazide 25 mg PO QAM 90 days lidocaine 5% 1 patch topical DAILY mometasone 0.1% 1 appl topical DAILY 10 days polyethylene glycol 3350 (Miralax) 238 grams PO ONCE 1 day sildenafil 100 mg PO ONCE PRN 30 days tramadol 50 mg PO Q6H PRN Tobacco use date assessed: 07/07/24 Fall risk assessment: No Falls in past year Last assessed Fall Risk: 07/07/24 Dental Screening Dental Screen Date: 07/07/24 Did you have a dental visit in the last 12 months?: Yes Did you have a dental problem in the last 6 months where you did not have access to dental care?: No Was dental information given to patient?: Patient has dentist HPI [facility] f/u HPI Details Patient comes in today for his follow up visit - he missed his appointment this past spring so his last visit here was in November 2023 Patient states that he feels okay He denies any headaches or dizziness Denies any chest pains, no SOB No nausea/vomiting, no abdominal pain No change in bowel habits noted States that he still has on and off low back pain but they are mostly manageable as long as he avoids any heavy lifting He needs his Sildenafil Rx refilled He again was not able to get his follow up labs done prior to his visit today so he has not had any labs done now in over a year States that he already received his flu shot at his local pharmacy recently States that he has not yet had his repeat colonoscopy done as his procedure was canceled and he has yet to be rescheduled He would now like to be referred to [facility] [place] for this as that is where all of his previous colonoscopies were done [facility] Medical History Lipoma of neck Vitamin D deficiency Erectile dysfunction Hearing impairment Left hip pain Obesity (BMI 30-39.9) Prostate cancer Benign essential hypertension Surgical History History of excision of mass (01/02/23) History of partial colectomy Status post excision of lipoma History of laparoscopic cholecystectomy History of prostatectomy (~11/15/20) Family History Other Family history non-contributory Social History Housing: House Alcohol intake: never Patient Tobacco Use Status: Never used Tobacco e-Cigarette/Vaping Use: Never Used Second Hand Smoke Exposure: No service: No Current occupational status: employed Cognitive needs: No Hearing needs: No Vision needs: Yes Questionnaire PHQ-9 Over the last 2 weeks, how often have you been bothered by any of the following problems? 1. Little interest or pleasure in doing things: not at all 2. Feeling down, depressed, or hopeless: not at all 3. Trouble falling or staying asleep, or sleeping too much: several days 4. Feeling tired or having little energy: not at all 5. Poor appetite or overeating: not at all 6. Feeling bad about yourself - or that you are a failure or have let yourself or your family down: not at all 7. Trouble concentrating on things, such as reading the newspaper or watching television: not at all 8. Moving or speaking so slowly that other people could have noticed. Or the opposite - being so fidgety or restless that you have been moving around a lot more than usual: not at all 9. Thoughts that you would be better off or of hurting yourself in some way: not at all Total score: 1 Depression Screening Interpretation: Negative Depression Screening Done: Yes 72686 - PHQ-9 Billing: Yes Source: Developed by Drs. Dinesh Christianson, Aida Chatterjee, Kem Pineda and colleagues, with an educational grisel from [employer]. Thrive Questionnaire Date Thrive assessed: 07/07/24 I am a: Patient What is your living situation today?: I have a steady place to live Within the past 12 months, did the food you bought not last and you didn't have the money to get more?: Never true Within the past 12 months, did you worry whether your food would run out before you got money to buy more?: Never true Do you have trouble paying for medicines?: No Do you have trouble getting transportation to medical appointments?: No Do you have trouble paying your heating and electricity bill?: No Do you have trouble taking care of your child, family member or friend?: No Do you have trouble with day-to-day activities such as bathing, preparing meals, shopping, managing finances, etc.?: No Are you currently unemployed and looking for a job?: No Are you interested in more education?: No Please select the resources that you would like help with: None Currently or been in a relationship where the following occur: No concerns reported THRIVE Score: 0 AUDIT C Alcohol Use Questionnaire (AUDIT-C) 1. How often do you have a drink containing alcohol?: Never 2. How many drinks containing alcohol do you have on a typical day when you are drinking?: 1 or 2 3. How often do you have six or more drinks on one occasion?: Never Total Score: 0 Score Reviewed/Action Taken: Yes COTY-7 AMB Questionnaire COTY-7 Date COTY - 7 assessed: 07/07/24 Feeling nervous, anxious, or on edge: 1 = Several days Not being able to stop or control worryin = Not at all Worrying too much about different things: 0 = Not at all Trouble relaxin = Not at all Being so restless that it is hard to sit still: 0 = Not at all Becoming easily annoyed or irritable: 0 = Not at all Feeling afraid as if something awful might happen: 0 = Not at all Total COTY-7 score (0-4 normal; 5-9 mild; 10-14 moderate; 15-21 severe): 1 Source: Developed by Drs. Dinesh Christianson, Aida BKem Raushc and colleagues, with an educational grisel from [employer]. Review of Systems Const Denies chills, Denies difficulty sleeping, Denies fatigue, Denies fever(s) and Denies headache(s) ENT Denies dysphagia, Denies dizziness, Denies otalgia, Denies headache(s), Denies neck pain, Denies odynophagia and Denies sore throat Card Denies chest pain, Denies irregular heart rhythm, Denies palpitations and Denies dyspnea Resp Denies chest congestion, Denies cough and Denies dyspnea GI Denies abdominal pain, Denies constipation, Denies dysphagia, Denies diarrhea, Denies nausea, Denies odynophagia and Denies vomiting Denies difficulty urinating, Denies dysuria, Reports nocturia (2 to 3 times a night) and Denies urinary frequency Musc Reports back pain (over the lower back), Denies arthralgias and Denies neck pain Skin/Breast Denies rash Neuro Denies dizziness, Denies headache(s) and Denies paresthesias Endo Denies fatigue and Denies palpitations Physical exam (Primary Care) Vital Signs: Last Vital Signs Pulse 74 07/07/24 16:12 BP 134/80 07/07/24 16:12 Pulse Ox 93 07/07/24 16:12 Oxygen Delivery Method Room Air 07/07/24 16:12 BMI result Body Mass Index 33.1 Tobacco/Smoking Status: Tobacco use Status Tobacco use date assessed 07/07/24 07/07/24 16:25 Patient Tobacco Use Status Never used Tobacco 07/07/24 16:12 e-Cigarette/Vaping Use Never Used 07/07/24 16:12 PHQ-9: PHQ-9 Score PHQ-9: Total score 1 07/07/24 16:46 Depression Screening Interpretation: Negative Thrive Assessment: Date of Thrive Assessment Date Thrive assessed 07/07/24 07/07/24 16:25 Currently or been in a relationship where the following occur: No concerns reported Const General: no acute distress and alert HENMT Ears: TM's normal bilaterally and EAC's normal Throat: Yes posterior oropharynx normal and Yes tonsils normal (no TP congestion) Neck Neck: Yes no lymphadenopathy and Yes supple Thyroid: Thyroid normal Resp Auscultation: clear to auscultation bilaterally, no rales and no wheezes Cardio Rate: regular rate Rhythm: regular rhythm Heart sounds: no murmurs GI Palpation (GI): Soft to palpation and nontender Auscultation: normal bowel sounds General: Yes no CVA tenderness Back/Spine/Pelvis Back: no CVA tenderness Thoracic/Lumbar Spine: lumbar spinal tenderness Skin Rashes: no rashes Extrem General: Yes no clubbing, cyanosis or edema Office Procedures Flu Questionnaire Does the patient have a severe egg allergy?: No Immunizations Fluarix Triv [id number] (PF) 45 mcg (15 mcg x 3)/0.5 mL IM syringe Performing Provider: Neto Lockwood MD [place] [facility] [place] Documented (not given) by: EM Lovell on 07/07/24 16:12 Reason Not Given: Received Previously Coding Level of Care Code Est Pt Level 4 (77707) Diagnoses Benign essential hypertension I10 Impaired fasting glucose R73.01 Vitamin D deficiency E55.9 Midline low back pain without sciatica, unspecified chronicity M54.50 Chronicity: unspecified Back pain laterality: midline Sciatica presence: without sciatica Erectile dysfunction, unspecified erectile dysfunction type N52.9 Erectile dysfunction type: unspecified Prostate cancer C61 Obesity (BMI 30-39.9) E66.9 Colon cancer screening Z12.11 Assessment & Plan Assessment & Plan (1) Benign essential hypertension: Code(s): I10 - Essential (primary) hypertension Category: Medical Plan: Reinforced low-sodium diet -? goal is systolic BP of at least 120 to 130 mm or less Continue Hydrochlorothiazide 25 mg QD (2) Impaired fasting glucose: Code(s): R73.01 - Impaired fasting glucose Category: Medical Plan: Patient has not gotten his follow up labs done in over a year now His HgbA1c was at 5.9% on his labs done last year; in-office HgbA1c was also at 5.9% previously Reinforced low calorie and low carb diet/exercise as tolerated Will recheck his labs and repeat HgbA1c in 4 months for follow up (3) Vitamin D deficiency: Code(s): E55.9 - Vitamin D deficiency, unspecified Category: Medical Plan: Continue Vitamin D3 2000 units QD Will recheck his Vitamin D level in 4 months for follow up (4) Low back pain: Code(s): M54.50 - Low back pain, unspecified Category: Medical Qualifiers: Chronicity: unspecified Back pain laterality: midline Sciatica presence: without sciatica Qualified Code(s): M54.50 - Low back pain, unspecified Plan: Reinforced activity and weight lifting restrictions Lumbar spine x-rays done back in April 2023 revealed (+) mild degenerative disc disease and facet arthropathy in the lower lumbar spine Will consider referring to physical therapy and / or pain management if his lower back continues to bother him significantly (5) Erectile dysfunction: Code(s): N52.9 - Male erectile dysfunction, unspecified Category: Medical Qualifiers: Erectile dysfunction type: unspecified Qualified Code(s): N52.9 - Male erectile dysfunction, unspecified Plan: Continue Sildenafil 50 mg QD PRN - Rx refilled (6) Prostate cancer: Code(s): C61 - Malignant neoplasm of prostate Category: Medical Plan: S/P robotic-assisted prostatectomy by Dr. Degroot a few years ago on 11/15/2020 Pathology showed Benicia 3+4, pT2c Repeat PSA a few months ago reportedly came out normal/low Follow up with urology as scheduled for continuing management and surveillance (7) Obesity (BMI 30-39.9): Code(s): E66.9 - Obesity, unspecified Category: Medical Plan: Reinforced diet/exercise as tolerated/lose weight (8) Colon cancer screening: Code(s): Z12.11 - Encounter for screening for malignant neoplasm of colon Category: Medical Plan: His repeat colon[place] was [place] [facility] but states that this was cancelled and he has yet to be rescheduled He now wants to get a referral to [facility] [place] and have this done over there instead - referral to [facility] [place] GI done per request Plan To return as scheduled in November 2024 for his annual physical examination Patient is reminded to make sure he get his labs done this time BEFORE he comes in for his PE in November 2024 as it has been well over a year now since he had labs done and he failed to do so over his last 2 visits Orders: Orders Lipid Panel 11/21/24 E78.00 - Pure hypercholesterolemia, unspecified, Z00.00 - Encounter for general adult medical examination without abnormal findings Vitamin D 25-OH Total 11/21/24 E55.9 - Vitamin D deficiency, unspecified, Z00.00 - Encounter for general adult medical examination without abnormal findings Influenza [id number] Immunization 07/07/24 Z23 - Encounter for immunization Complete Blood Count Auto Diff 11/21/24 D64.9 - Anemia, unspecified, Z00.00 - Encounter for general adult medical examination without abnormal findings Comprehensive [place]. Panel Fast 11/21/24 E78.00 - Pure hypercholesterolemia, unspecified, Z00.00 - Encounter for general adult medical examination without abnormal findings TSH reflex Free T4 11/21/24 E78.00 - Pure hypercholesterolemia, unspecified, Z00.00 - Encounter for general adult medical examination without abnormal findings UA CC w/rflx Micro + Cult 11/21/24 R30.0 - Dysuria, Z00.00 - Encounter for general adult medical examination without abnormal findings Prostate Specific Antigen 11/21/24 N40.0 - Benign prostatic hyperplasia without lower urinary tract symptoms, Z00.00 - Encounter for general adult medical examination without abnormal findings Hemoglobin A1c 11/21/24 E11.9 - Type 2 diabetes mellitus without complications, Z00.00 - Encounter for general adult medical examination without abnormal findings Referrals Gastroenterology Referral Z12.11 - Encounter for screening for malignant neoplasm of colon Medications: Refilled sildenafil 100 mg PO ONCE 30 days PRN 6 tabs 0RF sexual activity N52.9 - Male erectile dysfunction, unspecified
== END 2024-07-07 16:49 | disposition home or self-care (01) ==
PROVIDERS: PCP Internal Medicine; Visit Provider Internal Medicine
DX: I10 Essential (primary) hypertension (principal); C61 Malignant neoplasm of prostate; E66.811 Obesity, class 1; Z68.33 Body mass index [BMI] 33.0-33.9, adult; R73.01 Impaired fasting glucose; E55.9 Vitamin D deficiency, unspecified; M54.50 Low back pain, unspecified; N52.9 Male erectile dysfunction, unspecified; Z12.11 Encounter for screening for malignant neoplasm of colon

== ENCOUNTER → 2024-07-07 16:07 | Outpatient (BNVA) | payer MEDICARE, SELFPAY | PROVIDERS: PCP Internal Medicine; Visit Provider Internal Medicine | DX: N52.9 Male erectile dysfunction, unspecified (principal); E11.9 Type 2 diabetes mellitus without complications; E78.00 Pure hypercholesterolemia, unspecified; E55.9 Vitamin D deficiency, unspecified; D64.9 Anemia, unspecified; R30.0 Dysuria; I10 Essential (primary) hypertension; M54.50 Low back pain, unspecified; C61 Malignant neoplasm of prostate | CPT/HCPCS: 90471; 96127; 99212 ==

== ENCOUNTER 2024-10-09 10:40 | Outpatient (AMB) | payer MEDICARE, SELFPAY ==
[2024-10-09 10:42] VITALS: BP 122/76; PULSE 89; O2SAT 93; BMI 33.7
--- NOTE | 2024-10-09 10:42 | MHC.PC.OV ---
Vital Signs 10/09/24 10:42 Height 5 ft 6 in Weight 209 lb 2 oz BMI 33.7 BP 122/76 Blood Pressure Location Lt brachial Position Sitting Pulse 89 Pulse Source Pulse Oximeter Pulse Oximetry (%) 93 Oxygen Delivery Method Room Air Intake Visit Reasons: discuss prostate concern Perioperative Educator Required: No Accompanied by: Self / Same As Patient Allergies No Known Allergies Allergy (Verified 10/09/24 11:26) Medication List - Last Reconciled 10/09/24 by Neto Lockwood MD bisacodyl (Dulcolax (bisacodyl)) 10 mg (2 x 5 mg) PO ONCE 1 day bisacodyl (Dulcolax (bisacodyl)) 20 mg (4 x 5 mg) PO ONCE 1 day cholecalciferol (vitamin D3) 50 mcg PO DAILY 90 days hydrochlorothiazide 25 mg PO QAM 90 days lidocaine 5% 1 patch topical DAILY mometasone 0.1% 1 appl topical DAILY 10 days polyethylene glycol 3350 (Miralax) 238 grams PO ONCE 1 day sildenafil 100 mg PO ONCE PRN 30 days tramadol 50 mg PO Q6H PRN Tobacco use date assessed: 10/09/24 Fall risk assessment: No Falls in past year Last assessed Fall Risk: 10/09/24 Dental Screening Dental Screen Date: 10/09/24 Did you have a dental visit in the last 12 months?: No Did you have a dental problem in the last 6 months where you did not have access to dental care?: No Was dental information given to patient?: No HPI discuss prostate concern HPI Details Patient comes in today for evaluation of what he feels is a painful ball over his perianal area for the past 4 days He is concerned that this could be related to his prostate but he denies any recent acute urinary symptoms, including urinary frequency and dysuria He denies any change in bowel habits but also notes that the pain is increased during bowel movements No other acute complaints or symptoms are noted [facility] Medical History Lipoma of neck Vitamin D deficiency Erectile dysfunction Hearing impairment Left hip pain Obesity (BMI 30-39.9) Prostate cancer Benign essential hypertension Surgical History History of excision of mass (01/02/23) History of partial colectomy Status post excision of lipoma History of laparoscopic cholecystectomy History of prostatectomy (~11/15/20) Family History Other Family history non-contributory Social History Housing: House Alcohol intake: never Patient Tobacco Use Status: Never used Tobacco e-Cigarette/Vaping Use: Never Used Second Hand Smoke Exposure: No service: No Current occupational status: employed Cognitive needs: No Hearing needs: No Vision needs: Yes Questionnaire PHQ-9 Over the last 2 weeks, how often have you been bothered by any of the following problems? 1. Little interest or pleasure in doing things: not at all 2. Feeling down, depressed, or hopeless: not at all 3. Trouble falling or staying asleep, or sleeping too much: several days 4. Feeling tired or having little energy: not at all 5. Poor appetite or overeating: not at all 6. Feeling bad about yourself - or that you are a failure or have let yourself or your family down: not at all 7. Trouble concentrating on things, such as reading the newspaper or watching television: not at all 8. Moving or speaking so slowly that other people could have noticed. Or the opposite - being so fidgety or restless that you have been moving around a lot more than usual: not at all 9. Thoughts that you would be better off or of hurting yourself in some way: not at all Total score: 1 Depression Screening Interpretation: Negative Depression Screening Done: Yes 05660 - PHQ-9 Billing: Yes Source: Developed by Drs. Dinesh Christianson, Aida Chatterjee, Kem Pineda and colleagues, with an educational grisel from [employer]. Thrive Questionnaire Date Thrive assessed: 10/09/24 I am a: Patient What is your living situation today?: I have a steady place to live Within the past 12 months, did the food you bought not last and you didn't have the money to get more?: Never true Within the past 12 months, did you worry whether your food would run out before you got money to buy more?: Never true Do you have trouble paying for medicines?: No Do you have trouble getting transportation to medical appointments?: No Do you have trouble paying your heating and electricity bill?: No Do you have trouble taking care of your child, family member or friend?: No Do you have trouble with day-to-day activities such as bathing, preparing meals, shopping, managing finances, etc.?: No Are you currently unemployed and looking for a job?: No Are you interested in more education?: No Please select the resources that you would like help with: None Currently or been in a relationship where the following occur: No concerns reported THRIVE Score: 0 AUDIT C Alcohol Use Questionnaire (AUDIT-C) 1. How often do you have a drink containing alcohol?: Monthly or less 2. How many drinks containing alcohol do you have on a typical day when you are drinking?: 1 or 2 3. How often do you have six or more drinks on one occasion?: Never Total Score: 1 Score Reviewed/Action Taken: Yes COTY-7 AMB Questionnaire COTY-7 Date COTY - 7 assessed: 10/09/24 Feeling nervous, anxious, or on edge: 1 = Several days Not being able to stop or control worryin = Not at all Worrying too much about different things: 0 = Not at all Trouble relaxin = Not at all Being so restless that it is hard to sit still: 0 = Not at all Becoming easily annoyed or irritable: 0 = Not at all Feeling afraid as if something awful might happen: 0 = Not at all Total COTY-7 score (0-4 normal; 5-9 mild; 10-14 moderate; 15-21 severe): 1 Source: Developed by Drs. Dinesh Christianson, Aida Chatterjee, Kem Pineda and colleagues, with an educational grisel from [employer]. Review of Systems Const Denies chills, Denies fatigue, Denies fever(s) and Denies headache(s) ENT Denies dysphagia, Denies dizziness, Denies headache(s), Denies neck pain, Denies odynophagia and Denies sore throat Card Denies chest pain, Denies irregular heart rhythm, Denies palpitations and Denies dyspnea Resp Denies chest congestion, Denies cough and Denies dyspnea GI Details: (+) perianal pain - see HPI Denies abdominal pain, Denies constipation, Denies dysphagia, Denies diarrhea, Denies nausea, Denies odynophagia and Denies vomiting Denies difficulty urinating, Denies dysuria, Reports nocturia (2 to 3 times a night) and Denies urinary frequency Musc Reports back pain (over the lower back), Denies arthralgias and Denies neck pain Skin/Breast Denies rash Neuro Denies dizziness, Denies headache(s) and Denies paresthesias Endo Denies fatigue and Denies palpitations Physical exam (Primary Care) Vital Signs: Last Vital Signs Pulse 89 10/09/24 10:42 BP 122/76 10/09/24 10:42 Pulse Ox 93 10/09/24 10:42 Oxygen Delivery Method Room Air 10/09/24 10:42 BMI result Body Mass Index 33.7 Tobacco/Smoking Status: Tobacco use Status Tobacco use date assessed 10/09/24 10/09/24 10:49 Patient Tobacco Use Status Never used Tobacco 10/09/24 10:42 e-Cigarette/Vaping Use Never Used 10/09/24 10:42 PHQ-9: PHQ-9 Score PHQ-9: Total score 1 10/09/24 10:49 Depression Screening Interpretation: Negative Thrive Assessment: Date of Thrive Assessment Date Thrive assessed 10/09/24 10/09/24 10:49 Currently or been in a relationship where the following occur: No concerns reported Const General: no acute distress and alert Neck Neck: Yes no lymphadenopathy and Yes supple Resp Auscultation: clear to auscultation bilaterally, no rales and no wheezes Cardio Rate: regular rate Rhythm: regular rhythm Heart sounds: no murmurs GI Other: (+) small, tender abscess noted over the perianal area dorsolaterally Palpation (GI): Soft to palpation and nontender Auscultation: normal bowel sounds Back/Spine/Pelvis Thoracic/Lumbar Spine: lumbar spinal tenderness Extrem General: Yes no clubbing, cyanosis or edema Coding Level of Care Code Est Pt Level 3 (86676) Diagnoses Perianal abscess K61.0 Additional Codes PHQ-9 - 36689 - PHQ-9 Billing: Yes ([id number]) Assessment & Plan Assessment & Plan (1) Perianal abscess: Code(s): K61.0 - Anal abscess Category: Medical Plan: Patient is instructed to continue washing his perianal area regularly with soap and water, especially after bowel movements He can also try warm sitz baths/soaks PRN for symptomatic relief Will start him on Cephalexin 500 mg Q 6 hours x 7 days - advised that this should be enough to clear up the infection on his perianal area but he is instructed to call if he does not experience any significant improvement of his symptoms with the prescribed Abx Plan To return as scheduled next month for his annual physical examination Medications: New cephalexin 500 mg PO Q6H 7 days 28 caps 0RF
== END 2024-10-09 11:47 | disposition home or self-care (01) ==
PROVIDERS: PCP Internal Medicine; Visit Provider Internal Medicine
DX: K61.0 Anal abscess (principal)

== ENCOUNTER 2024-11-21 08:42 | Outpatient (REF) | payer MEDICARE, SELFPAY ==
[2024-11-21 08:54] LABS: MANUAL DIFF FLAG NO
[2024-11-21 09:17] LABS: Basophils Absolute Auto 0.1 X10*3/uL (0.0-0.2); Basophils Percent Auto 0.9 % (0-2); Eosinophils Absolute Auto 0.3 X10*3/uL (0.0-0.4); Eosinophils Percent Auto 4.6 % (0-4); Hemoglobin 14.9 g/dl (14.0-18.0); Imm Gran Abs Auto 0.01 X10*3/uL (0.00-0.03); Imm Gran Pct Auto 0.2 % (0.0-0.4); Lymphocytes Percent Auto 31.4 % (20-40); Mean Corpuscular HGB Conc 33.9 g/dl (31.0-36.0); Mean Corpuscular Hemoglobin 28.9 pg (27.0-33.0); Mean Corpuscular Volume 85.4 fL (80.0-98.0); Mean Platelet Volume 10.8 fL (9.4-12.4); Monocytes Absolute Auto 0.5 X10*3/uL (0.1-1.2); Monocytes Percent Auto 8.2 % (2-11); Neutrophils Absolute Auto 3.5 x10*3/uL (2.0-8.3); Neutrophils Percent Auto 54.7 % (45-73); Platelet Count 222 X10*3/uL (160-400); Red Blood Count 5.15 X10*6/uL (4.60-5.80); Red Cell Distribution Width 13.3 % (11.0-16.0); White Blood Count 6.3 X10*3/uL (4.8-10.8)
[2024-11-21 09:30] LABS: Estimated Average Glucose 123 mg/dL; Hemoglobin A1C 157.5768 umol/L; Hemoglobin A1c % 5.9 % (<6.0); Total Hemoglobin (HGBA1C) 3869.0943 umol/L
[2024-11-21 09:30] LABS: Appearance Urine Clear; Color Urine Yellow; Glucose Urine UA Negative (Negative); Leukocyte Esterase Urine Negative (Negative); Nitrite Urine Negative (Negative); Urine Blood Negative (Negative); Urine Ketones Negative (Negative); Urine Protein Negative (Neg-Trace)
[2024-11-21 09:50] LABS: Alanine Aminotransferase 31 U/L (0-40); Albumin Level 4.3 g/dL (3.5-5.0); Alkaline Phosphatase 74 U/L (39-117); Anion Gap 12 (12-20); Aspartate Amino Transferase 30 U/L (5-37); Bilirubin Total 0.7 mg/dL (0.0-1.0); Blood Urea Nitrogen 19 mg/dL (9-16); Calcium 9.4 mg/dL (8.4-10.2); Carbon Dioxide 26 mmol/L (22-29); Chloride 109 mmol/L (96-108); Cholesterol 148 mg/dL (<200); Estimated Glomerular Filt Rate 57; Glucose Fasting 104 mg/dL (60-99); HDL Cholesterol 44 mg/dL (>40); LDL Cholesterol Calculated 84 mg/dL (<100); Potassium 3.9 mmol/L (3.3-5.1); Sodium 143 mmol/L (135-145); Total Protein 7.5 g/dL (6.5-8.0); Triglycerides 100 mg/dL (<150)
[2024-11-21 10:13] LABS: Prostate Specific Antigen < 0.10 ng/mL (<0.05-4.0)
[2024-11-21 10:14] LABS: TSH reflex Free T4 1.57 uIU/mL (0.32-4.0); Vitamin D 25-OH Total 35.3 ng/mL (>30)
== END 2024-11-21 08:43 | disposition home or self-care (01) ==
LOC: HO.LAB 08:42
PROVIDERS: PCP Internal Medicine; Visit Provider Internal Medicine
DX: Z00.00 Encounter for general adult medical examination without abnormal findings (principal); E55.9 Vitamin D deficiency, unspecified; D64.9 Anemia, unspecified; E78.00 Pure hypercholesterolemia, unspecified; N40.0 Benign prostatic hyperplasia without lower urinary tract symptoms; E11.9 Type 2 diabetes mellitus without complications; R30.0 Dysuria; Z12.5 Encounter for screening for malignant neoplasm of prostate
CPT/HCPCS: 36415; 80053; 80061; 81003; 82306; 83036; 84153; 84443; 85025

== ENCOUNTER 2024-11-30 16:04 | Outpatient (AMB) | payer MEDICARE, SELFPAY ==
[2024-11-30 16:24] VITALS: BP 122/78; PULSE 73; O2SAT 94; BMI 33.6
--- NOTE | 2024-11-30 16:24 | A.OFFPC_ITS ---
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 Accompanied by: Self / Same As Patient Allergies No Known Allergies Allergy (Verified 11/30/24 17:12) Medication List - Last Reconciled 11/30/24 by Neto Lockwood MD bisacodyl (Dulcolax (bisacodyl)) 20 mg (4 x 5 mg) PO ONCE 1 day cholecalciferol (vitamin D3) 50 mcg PO DAILY 90 days hydrochlorothiazide 25 mg PO QAM 90 days lidocaine 5% 1 patch topical DAILY mometasone 0.1% 1 appl topical DAILY 10 days polyethylene glycol 3350 (Miralax) 238 grams PO ONCE 1 day sildenafil 100 mg PO ONCE PRN 30 days tramadol 50 mg PO Q6H PRN Tobacco use date assessed: 11/30/24 Fall risk assessment: No Falls in past year Last assessed Fall Risk: 11/30/24 Dental Screening Dental Screen Date: 11/30/24 Did you have a dental visit in the last 12 months?: Yes Did you have a dental problem in the last 6 months where you did not have access to dental care?: No Was dental information given to patient?: Patient has dentist HPI Annual Exam HPI Details Patient comes in today for his annual physical examination States that he feels okay He denies any headaches or dizziness Denies any chest pains, no SOB No nausea/vomiting, no abdominal pain No change in bowel habits noted He denies any acute urinary symptoms He had his follow up labs done last week - to discuss his results He reportedly had his colonoscopy last done at [facility] about 9 years ago now - was referred to [facility] last year for a repeat colonoscopy but states that he was told that they no longer accepts his insurance and he is requesting to be referred back to [facility] instead [facility] Medical History Lipoma of neck Vitamin D deficiency Erectile dysfunction Hearing impairment Left hip pain Obesity (BMI 30-39.9) Prostate cancer Benign essential hypertension Surgical History History of excision of mass (01/02/23) History of partial colectomy Status post excision of lipoma History of laparoscopic cholecystectomy History of prostatectomy (~11/15/20) Family History Other Family history non-contributory Social History Housing: House Alcohol intake: never Patient Tobacco Use Status: Never used Tobacco e-Cigarette/Vaping Use: Never Used Second Hand Smoke Exposure: No service: No Current occupational status: employed Cognitive needs: No Hearing needs: No Vision needs: Yes Questionnaire PHQ-9 Over the last 2 weeks, how often have you been bothered by any of the following problems? 1. Little interest or pleasure in doing things: not at all 2. Feeling down, depressed, or hopeless: not at all 3. Trouble falling or staying asleep, or sleeping too much: not at all 4. Feeling tired or having little energy: not at all 5. Poor appetite or overeating: not at all 6. Feeling bad about yourself - or that you are a failure or have let yourself or your family down: not at all 7. Trouble concentrating on things, such as reading the newspaper or watching television: not at all 8. Moving or speaking so slowly that other people could have noticed. Or the opposite - being so fidgety or restless that you have been moving around a lot more than usual: not at all 9. Thoughts that you would be better off or of hurting yourself in some way: not at all Total score: 0 Depression Screening Interpretation: Negative Depression Screening Done: Yes 69056 - PHQ-9 Billing: Yes Source: Developed by Drs. Dinesh Christianson, Aida Chatterjee, Kem Pineda and colleagues, with an educational grisel from [employer]. Thrive Questionnaire Date Thrive assessed: 11/30/24 I am a: Patient What is your living situation today?: I have a steady place to live Within the past 12 months, did the food you bought not last and you didn't have the money to get more?: Never true Within the past 12 months, did you worry whether your food would run out before you got money to buy more?: Never true Do you have trouble paying for medicines?: No Do you have trouble getting transportation to medical appointments?: No Do you have trouble paying your heating and electricity bill?: No Do you have trouble taking care of your child, family member or friend?: No Do you have trouble with day-to-day activities such as bathing, preparing meals, shopping, managing finances, etc.?: No Are you currently unemployed and looking for a job?: No Are you interested in more education?: No Please select the resources that you would like help with: None Currently or been in a relationship where the following occur: No concerns reported THRIVE Score: 0 AUDIT C Alcohol Use Questionnaire (AUDIT-C) 1. How often do you have a drink containing alcohol?: Never 3. How often do you have six or more drinks on one occasion?: Never Total Score: 0 Score Reviewed/Action Taken: Yes COTY-7 AMB Questionnaire COTY-7 Date COTY - 7 assessed: 11/30/24 Feeling nervous, anxious, or on edge: 0 = Not at all Not being able to stop or control worryin = Not at all Worrying too much about different things: 1 = Several days Trouble relaxin = Not at all Being so restless that it is hard to sit still: 0 = Not at all Becoming easily annoyed or irritable: 0 = Not at all Feeling afraid as if something awful might happen: 0 = Not at all Total COTY-7 score (0-4 normal; 5-9 mild; 10-14 moderate; 15-21 severe): 1 Source: Developed by Drs. Dinesh Christianson, Aida Chatterjee, Kem Pineda and colleagues, with an educational grisel from [employer]. Review of Systems Const Denies chills, Denies fatigue, Denies fever(s), Denies headache(s), Denies malaise and Denies weakness Eyes Denies blurry vision, Denies change in vision, Denies irritation and Denies itchy eyes ENT Denies dysphagia, Denies dizziness, Denies otalgia, Denies headache(s), Denies nasal congestion, Denies neck pain, Denies odynophagia and Denies sore throat Card Denies chest pain, Denies rapid heart rate, Denies irregular heart rhythm, Denies palpitations and Denies dyspnea Resp Denies chest congestion, Denies cough, Denies dyspnea and Denies wheezing GI Denies abdominal pain, Denies bloating, Denies constipation, Denies dysphagia, Denies heartburn, Denies diarrhea, Denies nausea, Denies odynophagia and Denies vomiting Denies hematuria, Denies difficulty urinating, Denies dysuria, Denies urinary frequency and Denies urinary urgency Musc Denies back pain, Denies arthralgias, Denies joint swelling, Denies muscle weakness and Denies neck pain Skin/Breast Denies change in pigmentation, Denies lesions, Denies rash and Denies unusual bruising Neuro Denies dizziness, Denies headache(s), Denies paresthesias and Denies weakness Endo Denies fatigue and Denies palpitations Aller/Immun Denies itchy eyes and Denies wheezing Physical exam (Primary Care) Vital Signs: Last Vital Signs Pulse 73 11/30/24 16:24 BP 122/78 11/30/24 16:24 Pulse Ox 94 11/30/24 16:24 Oxygen Delivery Method Room Air 11/30/24 16:24 BMI result Body Mass Index 33.6 Tobacco/Smoking Status: Tobacco use Status Tobacco use date assessed 11/30/24 11/30/24 16:29 Patient Tobacco Use Status Never used Tobacco 11/30/24 16:29 e-Cigarette/Vaping Use Never Used 11/30/24 16:29 PHQ-9: PHQ-9 Score PHQ-9: Total score 0 11/30/24 17:16 Depression Screening Interpretation: Negative Thrive Assessment: Date of Thrive Assessment Date Thrive assessed 11/30/24 11/30/24 16:29 Currently or been in a relationship where the following occur: No concerns reported Const General: no acute distress, alert and awake Orientation/consciousness: patient oriented x3 HENMT Head: Yes normocephalic and Yes atraumatic Ears: external ears normal, TM's normal bilaterally and EAC's normal General nose exam: No nasal discharge present Face and sinus: Yes normal facial exam and Yes sinuses nontender Teeth and gingiva: dentition normal Throat: Yes posterior oropharynx normal and Yes tonsils normal (no TP congestion) Eyes Eyelids: Yes eyelids normal Conjunctivae: conjunctivae normal Pupils: Equal, round and reactive pupils present EOM: EOMs intact bilaterally Neck Neck: Yes supple and No lymphadenopathy Thyroid: Thyroid normal Resp Auscultation: clear to auscultation bilaterally, no rales and no wheezes Cardio Rate: regular rate Rhythm: regular rhythm Heart sounds: no murmurs GI Palpation (GI): Soft to palpation, nontender and No hepatosplenomegaly present Auscultation: normal bowel sounds General: Yes no CVA tenderness Back/Spine/Pelvis Back: no CVA tenderness Thoracic/Lumbar Spine: thoracic and lumbar spine normal to inspection Skin Lesions: no lesions Rashes: no rashes Neuro General: patient oriented x3, moves all extremities, no focal motor deficits and CN's II-XI intact bilaterally Cranial nerves: Yes Equal, round and reactive pupils present Cognition (Neuro): normal cognition Gait exam (Neuro): Normal gait present Extrem General: Yes no clubbing, cyanosis or edema Results Reviewed Results Reviewed: Laboratory Tests 11/21/24 11/21/24 08:50 08:53 WBC 6.3 Hgb 14.9 Hct 44.0 Plt Count 222 Sodium 143 Potassium 3.9 Creatinine 1.25 Estimated GFR 57 Fasting Glucose 104 H Hemoglobin A1c % 5.9 Calcium 9.4 AST 30 ALT 31 Triglycerides 100 Cholesterol 148 LDL Cholesterol, Calc 84 HDL Cholesterol 44 Prostate Specific Ag < 0.10 25-OH Vitamin D Total 35.3 TSH 1.57 Ur Specific [place] 1.020 Urine Protein Negative Urine Glucose (UA) Negative Urine Blood Negative Urine Nitrite Negative Ur Leukocyte Esterase Negative Coding Level of Care Code Est Pt Prev Care >65y(60307) Diagnoses Benign essential hypertension I10 Impaired fasting glucose R73.01 Vitamin D deficiency E55.9 Midline low back pain without sciatica, unspecified chronicity M54.50 Back pain laterality: midline Chronicity: unspecified Sciatica presence: without sciatica Erectile dysfunction, unspecified erectile dysfunction type N52.9 Erectile dysfunction type: unspecified Prostate cancer C61 Obesity (BMI 30-39.9) E66.9 Colon cancer screening Z12.11 Additional Codes PHQ-9 - 21795 - PHQ-9 Billing: Yes ([id number]) Assessment & Plan Assessment & Plan (1) Benign essential hypertension: Code(s): I10 - Essential (primary) hypertension Category: Medical Plan: Reinforced low-sodium diet -? goal is systolic BP of at least 120 to 130 mm or less Continue Hydrochlorothiazide 25 mg QD (2) Impaired fasting glucose: Code(s): R73.01 - Impaired fasting glucose Category: Medical Plan: His HgbA1c was again at 5.9% on his recent labs done last week; it was at 5.7% when previously checked a couple of years ago in 2022 Reinforced low calorie/low carb diet; exercise as tolerated Will recheck his labs and repeat HgbA1c in 4 months for follow up (3) Vitamin D deficiency: Code(s): E55.9 - Vitamin D deficiency, unspecified Category: Medical Plan: Continue Vitamin D3 2000 units QD (4) Low back pain: Code(s): M54.50 - Low back pain, unspecified Category: Medical Qualifiers: Back pain laterality: midline Chronicity: unspecified Sciatica presence: without sciatica Qualified Code(s): M54.50 - Low back pain, unspecified Plan: Reinforced activity and weight lifting restrictions Lumbar spine x-rays done back in April 2023 revealed (+) mild degenerative disc disease and facet arthropathy in the lower lumbar spine As he has been c/o increasing pain over his lower back lately, will send him for repeat lumbar spine x-rays for further evaluation Will start him for now on Lidocaine 5% patch to apply to his lower back QD PRN for symptomatic relief (5) Erectile dysfunction: Code(s): N52.9 - Male erectile dysfunction, unspecified Category: Medical Qualifiers: Erectile dysfunction type: unspecified Qualified Code(s): N52.9 - Male erectile dysfunction, unspecified Plan: Continue Sildenafil 50 mg QD PRN (6) Prostate cancer: Code(s): C61 - Malignant neoplasm of prostate Category: Medical Plan: S/P robotic-assisted prostatectomy by Dr. Degroot a few years ago on 11/15/2020 Pathology showed Cammal 3+4, pT2c Repeat PSA done last week came out very low (as expected) Follow up with urology as scheduled for continuing management and surveillance (7) Obesity (BMI 30-39.9): Code(s): E66.9 - Obesity, unspecified Category: Medical Plan: Reinforced diet/exercise as tolerated/lose weight (8) Colon cancer screening: Code(s): Z12.11 - Encounter for screening for malignant neoplasm of colon Category: Medical Plan: His repeat colonoscopy was originally scheduled to be done here at [facility] last year but states that this was cancelled He then requested for a referral to [facility] to have this done over there instead (referral to [facility] GI was done per request) but he was then advised that [facility] is no longer taking his insurance Will go ahead and refer him back here to [facility] for his repeat colonoscopy Plan Follow up in 4 months Orders: Orders Hemoglobin A1c 4 Months R73.01 - Impaired fasting glucose Vitamin D 25-OH Total 4 Months E55.9 - Vitamin D deficiency, unspecified XR lumbar spine 2-3V 11/30/24 M54.50 - Low back pain, unspecified Complete Blood Count Auto Diff 4 Months D64.9 - Anemia, unspecified Comprehensive [place]. Panel Fast 4 Months E78.00 - Pure hypercholesterolemia, unspecified Lipid Panel 4 Months E78.00 - Pure hypercholesterolemia, unspecified UA CC w/rflx Micro + Cult 4 Months R30.0 - Dysuria Referrals Gastroenterology Referral Z12.11 - Encounter for screening for malignant neoplasm of colon Medications: Refilled lidocaine 5% leave on most painful area for up to 12 hrs 1 patch topical DAILY 30 ea 0RF M25.552 - Pain in left hip
== END 2024-11-30 17:29 | disposition home or self-care (01) ==
PROVIDERS: Visit Provider Internal Medicine
DX: Z00.00 Encounter for general adult medical examination without abnormal findings (principal); C61 Malignant neoplasm of prostate; E66.9 Obesity, unspecified; Z68.33 Body mass index [BMI] 33.0-33.9, adult; I10 Essential (primary) hypertension; R73.01 Impaired fasting glucose; E55.9 Vitamin D deficiency, unspecified; M54.50 Low back pain, unspecified; N52.9 Male erectile dysfunction, unspecified; Z12.11 Encounter for screening for malignant neoplasm of colon

== ENCOUNTER → 2024-11-30 16:04 | Outpatient (BNVA) | payer MEDICARE, SELFPAY | PROVIDERS: Visit Provider Internal Medicine | DX: Z00.00 Encounter for general adult medical examination without abnormal findings (principal); I10 Essential (primary) hypertension; R73.01 Impaired fasting glucose; M54.50 Low back pain, unspecified; E55.9 Vitamin D deficiency, unspecified; N52.9 Male erectile dysfunction, unspecified; C61 Malignant neoplasm of prostate; E66.9 Obesity, unspecified | CPT/HCPCS: 96127; 99397 ==

== ENCOUNTER 2025-06-17 09:02 | Day surgery (SDC) | payer MEDICARE, SELFPAY ==
--- OUTSIDE RECORDS SUMMARY | 2025-06-11 07:30 | XMS_ITS ---
Author Organization [facility] Address [address] [facility] [address] [place] [address] Care Team Providers Care Clinical Account Executive Name Role Phone SUDHEER PATTON Primary Care Provider Ame Goss Unavailable [phone] Allergies No Known Allergies Reason For Referral Reason Anoscopy, concern fo r fistula please evaluate and treat Diagnosis 1 Anal fistula, simple , initial (K60.311) Referral Organization [facility] Referring Provider First Name Ame Referring Provider Last Name Wolfgang Referred Provider Specialty Gastrointest inal surgeon General Notes Referral was faxed t [facility] Gastroenterology. Please contact patient for scheduling.Redd Rashida 06/11/2025 02:38:15 PM > Referral Priority Stat REASON FOR VISIT abscess to the patients back and buttom Medications Medication SIG (Take, Route, Frequency, Duration) Notes Start Date End Date Status hydroCHLOROthiazide 25 MG TAKE 1 TABLET BY MOUTH EVERY MORNING; Duration: 90 Active Hydrocortisone 2.5 % 1 application Externally Twice a day; Duration: 10 days 05/03/2025 Not-Takdewey g Ciprofloxacin HCl 500 MG 1 tablet Orally every 12 hrs; Duration: 10 days 06/11/2025 Active metroNIDAZOLE 500 MG 1 tablet Orally Thr ee times a day; Duration: 10 days 06/11/2025 Active Vital Signs Temperature 96.6 degrees Fahrenheit 06/11/20 25 Oximetry 98 % 06/11/2025 Heart Rate 90 /min 06/11/2025 Blood pressure systolic 130 mm Hg 06/11/20 25 Blood pressure diastolic 82 mm Hg 025 Weight 211.5 lbs 06/11/2025 BMI 34.13 kg/m2 06/11/2025 Height 5'6'' in 06/11/2025 Encounters Encounter Location Date Provider Diagnosis [facility] [address] [facility] [address] [place] [address] 06/11/2025 Lorenaleida Villaltavashtivanessa Anal fistula, simple, initial K60.311 Assessments Encounter Date Diagnosis (ICD Code) Assessment Notes Treatment Notes Treatment Clinical Notes Section Notes 06/11/2025 Anal fistula, simple, initial (ICD-10 - K60.311) Gus is a 74-year-old gentleman with history of hypertension, hemorrhoids, history of prostate cancer status post prostatectomy followed by Dr. Degroot at [facility] urology For concerned about an abscess in the rectum area. Plan as follows Anal fistula. No evidence of abscess on exam with no erythema or edema or bulge, however there is an open wound with purulent discharge and compressing on it will reproduce more discharge. No tenderness to palpate. Possible fistula. I will start patient on metronidazole and ciprofloxacin. I have also referred patient urgently to GI surgeon for anoscopy. Informed patient that if his symptoms worsen over the weekend then ER. General concerns have been discussed I have rendered the services for this patient under direct supervision of Dr. Patton, who did not see the patient but was available upon request Plan Of Treatment Medication Medication Name Sig Start Date Stop Date Notes Ciprofloxacin HCl 500 MG 1 tablet Orally every 12 hrs; Duration: 10 days 06/11/2025 metroNIDAZOLE 500 MG 1 tablet Orally Thr ee times a day; Duration: 10 days 06/11/2025 Referrals Referral Date Details 06/11/2025 06/11/2025, Anoscopy , concern for fistula please evaluate and treat Next Appt Details Follow Up: next appt, Reason : Provider Name:Adi Parker, Blair 11/04/2025 02:30:00 PM, [address] [facility] [address], [place], [address], Progress Notes * Gus SHEPHERD MDOB: [birth year] (74 yo M)Acc No.[id number]:06/11/2025 Patient: Gus LICONA Appointment Provider: Norman Goss :1950 A ge:74 Y S ex:Male Supervising Provider:SUDHEER PATTON MD Phone: Date:06/11/2025 Address:[address] [place] [address] [place] Pcp:SUDHEER PATTON Subjective: * Chief Complaints: * A bscess to the patients back and buttom * HPI: i nternal medicine: Gus is a 74-year-old gentleman with history of hypertension, hemorrhoids, history of prostate cancer status post prostatectomy followed by Dr. Degroot at [facility] urology For concerned about an abscess in the rectum area. patient is Bulgarian speaking but his is interpreting. Patient states that he does have history of abscess in the rectum area which previously he was treated with antibiotic but failed the treatment thus prompted incision and drainage. He states that that was about 20 years ago. He now admits to pain in the rectum area with a sensation of bulge and wheezing. He denies any fever, chills, hematochezia or melena. No constipation. He has an upcoming appointment for colonoscopy with a GI. He denies any other active issues. * ROS: G eneral/Constitutional: Overall health G ood. C hange in appetite d enies.?Chills d enies. F ever d enies. N ight sweats d enies. S leep disturbance d enies. W eight gain d enies. W eight loss d enies. N eurologic: Patient denies b alance difficulty, difficulty speaking, dizziness. D ifficulty speaking d enies. D izziness d enies. G ait abnormality?denies. H eadache d enies. L oss of strength d enies. M niles loss d enies. S eizures d enies. T ingling/Numbness d enies . O phthalmologic: Blurred vision d enies. D ischarge d enies. D ry eye d enies. R ed eye d enies. E NT: Change in Voice D enies. C old Symptoms D enies.?Cough D enies. D izziness D enies. N boubacar Congestion D enies. O talgia?Denies. p ostnasal drip D enies. B locked ear d enies. N osebleed d enies. S noring d enies. C ardiovascular: Diaphoresis D enies. P edal Edema D enies. P ND (Paroxsymal nocturnal dyspnea) D enies. C hest pain d enies. D ifficulty laying flat d enies. D yspnea on exertion d enies. H eart murmur d enies. O rthopnea?denies. R espiratory: Asthma d enies. C ough d enies. S hortness of breath with exertion d enies. S putum production d enies. W heezing d enies. G astrointestinal: Patient complaining of s mall bump at the anal area. C hange in bowel habits d enies. C onstipation d enies. D ecreased appetite d enies. D iarrhea d enies. H eartburn d enies. N ausea d enies. V omiting?denies. M usculoskeletal: tingling/numbness D enies. m yalgias D enies. J oint Swelling D enies. e xtremeties n ormal. A rthritis d enies. B ack problems d enies. C arpal tunnel d enies. J oint stiffness d enies. M uscle aches d enies. E ndocrine: Bowel Changes D enies. B reast Discharge D enies.?poor libido D enies. C old intolerance d enies. E xcessive sweating d enies.?Excessive thirst d enies. F requent urination d enies. T hyroid problems d enies. S kin: Bruising D enies. P atient complaining of r robin at bilateral cheek. E czema d enies. H air changes d enies. R robin d enies. S kin lesion(s) d enies. P sychiatric: Anxiety d enies. D epressed mood d enies. D ifficulty sleeping d enies. N ervous breakdown d enies. S ubstance abuse d enies.? U rology: blood in urine d enies. b urning on urination d enies. d ifficulty urinating d enies. d ischarge d enies. d ysuria d enies.? * Medical History: * Medications: T akinghydroCHLOROthiazide 25 MG Tablet TAKE 1 TABLET BY MOUTH EVERY MORNING Taking hydroCHLOROthiazide 25 MG Tablet TAKE 1 TABLET BY MOUTH EVERY MORNING Not-TakingHydrocortisone 2.5 % Ointment 1 application Externally Twice a day Medication List reviewed and reconciled with the patientNot-Taking Hydrocortisone 2.5 % Ointment 1 application Externally Twice a day Medication List reviewed and reconciled with the patient * Allergies: N .K.D.A.no[Allergies Verified] Objective: * Vitals: T emp:96.6F, Oxygen sat %:98%, HR:90/min, BP:130/82mm Hg, Wt:211.5lbs, BMI:34.13Index, Ht: 5'6''. * Examination: G eneral Examination: GENERAL APPEARANCE: W ell developed, well nourished, in no acute distress. MUSCULOSKELETAL: N ormal. HEAD: N ormocephalic, atraumatic. EYES: P upils equal, round, reactive to light and accommodation, sclera non-icteric. EARS: a uditory canal clear tympanic membrane intact, clear light reflex present . ORAL CAVITY: N ormal. THROAT: C lear. OROPHARYNX N ormal. SINUSES N ormal. NECK/THYROID: N tarun supple, full range of motion, no cervical lymphadenopathy. SKIN: g ood turgor no suspicious lesions warm and dry normal hair distribution . HEART: S 1, S2 normal regular rate and rhythm no murmurs, rubs, gallops . LUNGS: c lear anteriorly and posteriorly good air movement no wheezes, rales, rhonchi . BREASTS: _ _. ABDOMEN: S oft, nontender, nondistended, bowel sounds present, . EXTREMITIES: N ormal. PERIPHERAL PULSES: N ormal. NEUROLOGIC: N onfocal, appropriate m otor strength normal upper and lower extremities, sensory exam intact. Psychiatry N ormal. FEMALE GENITOURINARY: _ _. MALE GENITOURINARY: T here is an evidence of drainage from an open wound just right above the rectum, No evidence of any abscess, no erythema or edema or bolts to palpate however as pressing on the wound more purulent discharge is coming out concerning for possible fistula. PODIATRIC: N ormal. Manager Garage r ashida. Assessment: * Assessment: 1. A nal fistula, simple, initial - K60.311 (Primary) Gus is a 74-year-old gentle man with history of hypertension, hemorrhoids, history of prostate cancer status post prostatectomy followed by Dr. Degroot at [facility] For concerned about an abscess in the rectum area. Plan as follows Anal fistula. No evidence of abscess on exam with no erythema or edema or bulge, however there is an open wound with purulent discharge and compressing on it will reproduce more discharge. No tenderness to palpate. Possible fistula. I will start patient on metronidazole and ciprofloxacin. I have also referred patient urgently to GI surgeon for anoscopy. Informed patient that if his symptoms worsen over the weekend then ER. General concerns have been discussed I have rendered the services for this patient under direct supervision of Dr. Patton, who did not see the patient but was available upon request Plan: * Treatment: * Procedure Codes: * Follow Up: n ext appt * Images: Review Notes: SUDHEER PATTON 2025-06-14 08:03:30* Electronically co-signed by SUDHEER PATTON MD on 06/14/2025 at 08:03 AM EDT Sign off status: Completed true * Appointment Provider: Norman Goss Date: 06/11/2025 Generated for Leonora barroso/Chau/Jim on: 06/14/2025 04:49 PM EDT History and Physical Notes * HPI (History of Present Illness) Category Sub-Category Detail Notes Category Not es internal medicine Gus is a 74-year-old gentleman with history of hypertension, hemorrhoids, history of prostate cancer status post prostatectomy followed by Dr. Degroot at [facility] For concerned about an abscess in the rectum area. patient is Bulgarian speaking but his is interpreting. Patient states that he does have history of abscess in the rectum area which previously he was treated with antibiotic but failed the treatment thus prompted incision and drainage. He states that that was about 20 years ago. He now admits to pain in the rectum area with a sensation of bulge and wheezing. He denies any fever, chills, hematochezia or melena. No constipation. He has an upcoming appointment for colonoscopy with a GI. He denies any other active issues Examination Category Sub-Category Detail Notes Category Not es General Examination GENERAL APPEARANCE: Well dev eloped, well nourished, in no acute distress HEAD: Normocephalic, atrau matic EYES: Pupils equal, round, reactive to light and accommodation, sclera non-icteric EARS: auditory canal clear tympanic membrane intact, clear light reflex present THROAT: Clear NECK/THYROID: Neck supple, full ra nge of motion, no cervical lymphadenopathy HEART: S1, S2 normal regula r rate and rhythm no murmurs, rubs, gallops LUNGS: clear anteriorly and posteriorly good air movement no wheezes, rales, rhonchi ABDOMEN: Soft, nontender, non distended, bowel sounds present, NEUROLOGIC: Nonfocal, appropriat e motor strength normal upper and lower extremities, sensory exam intact SKIN: good turgor no suspi cious lesions warm and dry normal hair distribution EXTREMITIES: Normal PERIPHERAL PULSES: Normal BREASTS: __ MUSCULOSKELETAL: Normal MALE GENITOURINARY: There is an evidence of drainage from an open wound just right above the rectum, No evidence of any abscess, no erythema or edema or bolts to palpate however as pressing on the wound more purulent discharge is coming out concerning for possible fistula FEMALE GENITOURINARY: __ ORAL CAVITY: Normal PODIATRIC: Normal Psychiatry Normal OROPHARYNX Normal SINUSES Normal Manager Garage asa Consultation Request Notes Referral Date Referring Provider Referred Provider Not wolf 06/11/2025 Ame Goss , Anoscopy c oncern for fistula please evaluate and treat
--- OUTSIDE RECORDS SUMMARY | 2025-06-14 16:50 | XMS_ITS | Patient Health Record ---
Author Organization [employer] [facility] Address [address] [place] [address] Care Team Providers Care Molding And Trim Installer Name Role Phone SUDHEER PATTON Primary Care Provider [phone] Adi Parker Unavailable [phone] Ame Goss Unavailable [phone] Allergies No Known Allergies Reason For Referral Reason screening colonoscop y, [place] Please evaluate and treat Diagnosis 1 Encounter for screen ing for malignant neoplasm of colon (Z12.11) Referral Organization [facility] Referring Provider First Name Adi Referring Provider Last Name Keith Referring Provider Speciality Internal M edicine Referred Provider Specialty Gastroentero logy General Notes Please call the [facility] ent to schedule the appointment, Encounter created and SMS sent to the pt.Cale Charmain 05/03/2025 02:39:29 PM > Referral Priority Routine Reason Anoscopy, concern fo r fistula please evaluate and treat Diagnosis 1 Anal fistula, simple , initial (K60.311) Referral Organization [facility] Referring Provider First Name Ame Referring Provider Last Name Wolfgang Referred Provider Specialty Gastrointest inal surgeon General Notes Referral was faxed t [facility] Gastroenterology. Please contact patient for scheduling.Redd Rashida 06/11/2025 02:38:15 PM > Referral Priority Stat Medications Medication SIG (Take, Route, Frequency, Duration) Notes Start Date End Date Status hydroCHLOROthiazide 25 MG TAKE 1 TABLET BY MOUTH EVERY MORNING; Duration: 90 Active Hydrocortisone 2.5 % 1 application Externally Twice a day; Duration: 10 days 05/03/2025 Not-Kel g Ciprofloxacin HCl 500 MG 1 tablet Orally every 12 hrs; Duration: 10 days 06/11/2025 Active metroNIDAZOLE 500 MG 1 tablet Orally Thr ee times a day; Duration: 10 days 06/11/2025 Active Problems Problem Type SNOMED Code ICD Code Onset Dates Problem Status W/U Status Risk Notes Problem Essential hypertension (41558884) Essential (primary) hypertension (I10) Active confirmed Problem Atopic dermatitis (18849207) Intrinsic (allergic) eczema (L20.84) Active confirmed Vital Signs Heart Rate 90 /min 06/11/2025 Temperature 96.6 degrees Fahrenheit 06/11/2025 Blood pressure diastolic 82 mm Hg 06/11/2025 Oximetry 98 % 06/11/2025 Height 5'6'' in 06/11/2025 Blood pressure systolic 130 mm Hg 06/11/2025 Weight 211.5 lbs 06/11/2025 BMI 34.13 kg/m2 06/11/2025 Encounters Encounter Location Date Provider Diagnosis [address] [address] 05/03/2025 Aroodin Parker Intrinsic (allergic) eczema L20.84 ; Encounter for screening for cardiovascular disorders Z13.6 ; Obesity, class 1 E66.811 and Essential (primary) hypertension I10 [address] [address] 06/11/2025 Ame Goss Anal fistula, simple , initial K60.[address] [address] 05/03/2025 SUDHEER PATTON [address] [address] 06/11/2025 Ghmaceyer Nelsonum Assessments Encounter Date Diagnosis (ICD Code) Assessment Notes Treatment Notes Treatment Clinical Notes Section Notes 05/03/2025 Intrinsic (allergic) eczema (ICD-10 - L20.84) 74-year-old gentleman with history of hypertension, left sided hearing impairment, obesity class I came in for a new PCP visit plan is following up. Hypertension blood pressure stable 120/84. He is on hydrochlorothiazide 25 mg daily which we will continue we will check albumin creatinine ratio and a basic metabolic panel Hyperlipidemia screening check a lipid profile History of prostate cancer status post prostatectomy, is followed by Dr. Degroot will check SHARON Facial rash appears to be due to chemical exposure. 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 Patient will also use regular moisturizer and avoid detergents. 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 History of hemorrhoids, possible history of cellulitis and skin abscess. On exam there is no fluctuance but a small draining area without any surrounding cellulitis, discussed with patient to keep it clean and dry it. He also is overdue for his colonoscopy will give him a referral for GI. Screening blood work slip has been given 06/11/2025 Anal fistula, simple, initial (ICD-10 - K60.311) Gus is a 74-year-old gentleman with history of hypertension, hemorrhoids, history of prostate cancer status post prostatectomy followed by Dr. Degroot at [facility] urology For concerned about an abscess in [...] the patient but was available upon request 05/03/2025 Encounter for screening for cardiovascular disorders (ICD-10 - Z13.6) 74-year-old gentleman with history of hypertension, left sided hearing impairment, obesity class I came in for a new PCP visit plan is following up. Hypertension blood pressure stable 120/84. He is on hydrochlorothiazide 25 mg daily which we will continue we will check albumin creatinine ratio and a basic metabolic panel Hyperlipidemia screening check a lipid profile History of prostate cancer status post prostatectomy, is followed by Dr. Degroot will check SHARON Facial rash appears to be due to chemical exposure. 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 Patient will also use regular moisturizer and avoid detergents. 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 History of hemorrhoids, possible history of cellulitis and skin abscess. On exam there is no fluctuance but a small draining area without any surrounding cellulitis, discussed with patient to keep it clean and dry it. He also is overdue for his colonoscopy will give him a referral for GI. Screening blood work slip has been given 05/03/2025 Obesity, class 1 (ICD-10 - E66.811) 74-year-old gentleman with history of hypertension, left sided hearing impairment, obesity class I came in for a new PCP visit plan is following up. Hypertension blood pressure stable 120/84. He is on hydrochlorothiazide 25 mg daily which we will continue we will check albumin creatinine ratio and a basic metabolic panel Hyperlipidemia screening check a lipid profile History of prostate cancer status post prostatectomy, is followed by Dr. Degroot will check SHARON Facial rash appears to be due to chemical exposure. 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 Patient will also use regular moisturizer and avoid detergents. 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 History of hemorrhoids, possible history of cellulitis and skin abscess. On exam there is no fluctuance but a small draining area without any surrounding cellulitis, discussed with patient to keep it clean and dry it. He also is overdue for his colonoscopy will give him a referral for GI. Screening blood work slip has been given 05/03/2025 Essential (primary) hypertension (ICD-10 - I10) 74-year-old gentleman with history of hypertension, left sided hearing impairment, obesity class I came in for a new PCP visit plan is following up. Hypertension blood pressure stable 120/84. He is on hydrochlorothiazide 25 mg daily which we will continue we will check albumin creatinine ratio and a basic metabolic panel Hyperlipidemia screening check a lipid profile History of prostate cancer status post prostatectomy, is followed by Dr. Degroot will check SHARON Facial rash appears to be due to chemical exposure. 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 Patient will also use regular moisturizer and avoid detergents. 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 History of hemorrhoids, possible history of cellulitis and skin abscess. On exam there is no fluctuance but a small draining area without any surrounding cellulitis, discussed with patient to keep it clean and dry it. He also is overdue for his colonoscopy will give him a referral for GI. Screening blood work slip has been given Plan Of Treatment Future Test Test Name Order Date CBC with Diff, Platelet, [id number] 04/07 Albumin/Creatinine Ratio,Urine-[id number] Lipid Panel With LDL/HDL Ratio-[id number] Comp. Metabolic Panel [id number] PSA (Serial Monitor)-[id number] 05/03/2025 Next Appt Details Provider Name:Adi Parker, 0 11/04/2025 02:30:00 PM, [address] [place] [address], [id number], Insurance Providers Payer Name Payer Address Payer Phone Subscriber Number Group Number Insured Name Patient Relationship to Insured Coverage Start Date Coverage End Date [facility] [address] [place] [address] [id number] Gus Shepherd Self - patient is the insured Medical (General) History Medical History History ICD Code hypertension History of prostate cancer 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
[2025-06-17 10:14] VITALS: BMI 33.8
[2025-06-17 10:18] VITALS: BP 129/78; PULSE 77; RESP 16; TEMP 36.5; O2SAT 95
--- NOTE | 2025-06-17 10:29 | MHC.SHP ---
Pre-Procedural Eval Section A - 24 Hr Update-Section A only Date of Service: 06/17/25 Section B - Complete if H&P > 30 days Chief Complaint: SCREENING Details of Present Illness: Lipoma of neck Vitamin D deficiency Erectile dysfunction Hearing impairment Left hip pain Obesity (BMI 30-39.9) Prostate cancer Benign essential hypertension Surgical History History of excision of mass (01/02/23) History of partial colectomy Status post excision of lipoma History of laparoscopic cholecystectomy History of prostatectomy (~11/15/20) Present Medications: see Short Stay Collaborative assessment Allergies: Allergies Allergy/AdvReac Type Severity Reaction Status Date / Time No Known Allergies Allergy Verified 11/30/24 17:12 Review of Systems Review of Systems Comment: Ten point ROS negative Exam Exam Comment: Gen appear: No acute distress HEENT: no icterus Chest: No overt resp distress Abd: soft, nontender, nondistended Psych: Stable affect, answering questions appropriately Neuro: A/Ox3 noted to move all extremities spontaneously Ext: no peripheral edema Plan Diagnosis/Plan: Unchanged I have reviewed the history and physical and performed a pertinent physical examination on my patient. No changes have occurred unless specified. Time Spent With Patient Time: Total time managing care of this patient today ____ minutes.
[2025-06-17] MEDS: Lactated Ringers 1,000 ML 100 ML IVCONT (10:33)
--- NOTE | 2025-06-17 10:52 | HO.ANESPROP2 ---
Documented by User: Janene Holloway NP 06/15/25 15:20 HPI - Anesthesia Eval Consult details Narrative: 74 yr old male for colonoscopy PMF Active Problems Active Problems: All Active Problems (Updated 10/09/24 @ 11:29 by Neto Lockwood MD) Perianal abscess (Acute) Colon cancer screening (Acute) Low back pain (Acute) Lipoma of neck (Acute) Blurring of vision (Acute) Skin nodule (Acute) Eye exam, routine (Acute) Vitamin D deficiency (Acute) Impaired fasting glucose (Acute) Erectile dysfunction (Acute) Irritant contact dermatitis (Acute) Hearing impairment (Acute) Annual physical exam (Acute) Left hip pain (Acute) Obesity (BMI 30-39.9) (Acute) Prostate cancer (Acute) Benign essential hypertension (Acute) Past Medical History Medical History (Updated 06/17/25 @ 10:12 by Terri Canchola, RN) Pilonidal cyst Bilateral cataracts Rectal abscess Lipoma of neck Vitamin D deficiency Erectile dysfunction Hearing impairment Left hip pain Obesity (BMI 30-39.9) Prostate cancer Benign essential hypertension Family History Family History Other Family history non-contributory Surgical History Surgical History (Updated 06/17/25 @ 10:08 by Terri Canchola RN) History of excision of mass (01/02/23) History of partial colectomy Status post excision of lipoma History of laparoscopic cholecystectomy History of prostatectomy (~11/15/20) Social History Social History Housing: House Alcohol intake: never Patient Tobacco Use Status: Never used Tobacco e-Cigarette/Vaping Use: Never Used Second Hand Smoke Exposure: No Use of substances other than those prescribed or required for medical reasons: No Are you DNR?: No Advance Directives: No Advance Directives Information Provided: Yes Poor oral hygiene: No service: No Current occupational status: employed Cognitive needs: No Hearing needs: No Vision needs: Yes Meds Allergies Allergy/AdvReac Type Severity Reaction Status Date / Time No Known Allergies Allergy Verified 11/30/24 17:12 Home Medications ?Medication ?Instructions ?Recorded ?Confirmed ?Last Taken ?Type ciprofloxacin HCl 500 mg tablet 500 mg PO BID 06/17/25 06/17/25 06/15/25 History Documented by User: Annemarie Hoang, DO 06/17/25 10:53 PMFSH Past Medical History Medical History (Updated 06/17/25 @ 10:12 by Terri Canchola RN) Pilonidal cyst Bilateral cataracts Rectal abscess Lipoma of neck Vitamin D deficiency Erectile dysfunction Hearing impairment Left hip pain Obesity (BMI 30-39.9) Prostate cancer Benign essential hypertension Family History Family History Other Family history non-contributory Family history of problems with anesthesia: No Surgical History Surgical History (Updated 06/17/25 @ 10:08 by Terri Canchola RN) History of excision of mass (01/02/23) History of partial colectomy Status post excision of lipoma History of laparoscopic cholecystectomy History of prostatectomy (~11/15/20) History of Problems with Anesthesia: No Social History Social History Housing: House Alcohol intake: never Patient Tobacco Use Status: Never used Tobacco e-Cigarette/Vaping Use: Never Used Second Hand Smoke Exposure: No Use of substances other than those prescribed or required for medical reasons: No Are you DNR?: No Advance Directives: No Advance Directives Information Provided: Yes Poor oral hygiene: No service: No Current occupational status: employed Cognitive needs: No Hearing needs: No Vision needs: Yes Meds Allergies Allergy/AdvReac Type Severity Reaction Status Date / Time No Known Allergies Allergy Verified 11/30/24 17:12 Home Medications ?Medication ?Instructions ?Recorded ?Confirmed ?Last Taken ?Type ciprofloxacin HCl 500 mg tablet 500 mg PO BID 06/17/25 06/17/25 06/15/25 History Exam Exam Date and Time: 06/17/25 1052 Height,Weight and Vital Signs: Height 5 ft 6 in Weight 95 kg Vital Signs Temperature 97.7 F 06/17/25 10:18 Pulse Rate 77 06/17/25 10:18 Respiratory Rate 16 06/17/25 10:18 Blood Pressure 129/78 06/17/25 10:18 Pulse Oximetry 95 06/17/25 10:18 Oxygen Delivery Method Room Air 06/17/25 10:18 Temperature 97.7 F 06/17/25 10:18 Pulse Rate 77 06/17/25 10:18 Respiratory Rate 16 06/17/25 10:18 Blood Pressure 129/78 06/17/25 10:18 Pulse Oximetry 95 06/17/25 10:18 Oxygen Delivery Method Room Air 06/17/25 10:18 Airway Mallampati Class: III TM Dist: >3cm Neck ROM: Full Loose/Missing/Broken Teeth: No (patient denies any loose or broken teeth) Heart: S1S2 Lungs: CTAB Assessment and Plan Assessment Anesthesia Assessment: Anesthesia Plan Discussed and Chart Reviewed Final Anesthetic Review Family History of Problems with Anesthesia: No History of Problems with Anesthesia: No NPO: Yes ASA Class: II Final Preanesthetic Review: No Changes in Pt Med Stat, Meds/Allgs Chart Reviewed, Consent Obtained/Reviewed and Anes Risks/Benef Reviewed Patient Risk: Low Procedure Risk: Low Anesthetic Plan Anesthetic Plan: MAC: and Agree w/ Assess. and Plan Disposition: Standard PACU
[2025-06-17 12:01] VITALS: BP 95/61; PULSE 73; RESP 18; TEMP 36.3; O2SAT 91
--- NOTE | 2025-06-17 12:09 | P.OPN-COLO_ITS ---
Colonoscopy Operative Note Operative Note Date of Service: 06/17/25 Narrative: Procedure: Colonoscopy Indication: Screening Endoscopist: Tatum Jin MD Anesthesia Provider: Dr Annemarie Hoang Anesthesia type: MAC Instrument: Olympus [id number]-[id number] Consent: Indication, risks vs benefits, and alternatives were discussed with the patient who gave written informed consent to proceed. An administrative dietitian was utilized to assist with the consent. EKG, pulse, pulse oximetry and blood pressure were monitored throughout the procedure. Please see anesthesia flowsheet. Procedure: The patient was brought to the procedure room and placed in the left lateral decubitus position. IV medications were administered by the anesthesia provider in attendance. A digital rectal exam was performed which was normal. A distal attachment cap was affixed to the tip of the colonoscope which was then inserted through the anus and advanced through the colon to the cecum at 70 cm,and terminal ileum. Appendiceal orifice and ileocecal valve were identified. Mucosa was carefully examined under high definition white light as the instrument was slowly withdrawn in a retrograde panoramic fashion. Retroflexion was performed in rectum. The procedure was not difficult. There were no immediate obvious complications. The quality of the prep was BBPS: 2+3+3 = adequate Withdrawal time 7 minutes. Limitations: No limitations. Findings: Mucosa: Normal to cecum and terminal ileum. Protruding lesions: * Medium internal hemorrhoids without stigmata of recent bleeding. Excavated lesions: * Mild to moderate diverticulosis of sigmoid colon. Impression: 1. Normal colon and terminal ileum mucosa 2. Diverticulosis 3. Internal hemorrhoids Recommendations: - repeat colonoscopy for asymptomatic colorectal cancer screening in 10 years if patient in good health
[2025-06-17 12:15] VITALS: BP 120/73; PULSE 59; RESP 18; O2SAT 91
[2025-06-17 12:30] VITALS: BP 120/73; PULSE 59; RESP 18; TEMP 36.3; O2SAT 97
== END 2025-06-17 13:07 | disposition home or self-care (01) ==
PROVIDERS: PCP Hospitalist; Visit Provider Internal Medicine
PROC: 0DJD8ZZ Inspection of Lower Intestinal Tract, Via Natural or Artificial Opening Endoscopic (ICD-10-PCS; CPT 45378; principal; 2025-06-17 11:10)
DX: Z12.11 Encounter for screening for malignant neoplasm of colon (principal); K57.30 Diverticulosis of large intestine without perforation or abscess without bleeding; K64.8 Other hemorrhoids; I10 Essential (primary) hypertension; E55.9 Vitamin D deficiency, unspecified; Z85.46 Personal history of malignant neoplasm of prostate; Z79.899 Other long term (current) drug therapy
CPT/HCPCS: G0121; J2003; J2704

== ENCOUNTER → 2025-06-17 09:02 | Outpatient (BNV) | payer MEDICARE, SELFPAY | PROVIDERS: PCP Hospitalist; Visit Provider Internal Medicine | DX: Z12.11 Encounter for screening for malignant neoplasm of colon (principal); K57.30 Diverticulosis of large intestine without perforation or abscess without bleeding; K64.8 Other hemorrhoids | CPT/HCPCS: G0121 ==